=== PATIENT | male | born 1955 | race Caucasian/White ===

== ENCOUNTER 2025-01-23 15:20 | Inpatient (IN) | payer OTHER, MEDICARE, SELFPAY ==
[2025-01-23] VITALS (19 sets, daily range): BP systolic 126–143; BP diastolic 54–70; PULSE 65–74; RESP 16–22; TEMP 36.4–36.9; O2SAT 94–100
--- NOTE | ~2025-01-23 | XR_ITS ---
XR chest 2V Ordering provider: Donna Julien PA-C History: 69 years Male with . dizziness . Comparison: None. FINDINGS: MEDIASTINUM: The cardiac silhouette is not enlarged. LUNGS: No infiltrates, effusions or pneumothorax. OTHER: No free air under the diaphragm. Old healed fractures in the mid left hemithorax. S-shaped scoliosis. IMPRESSION: No acute cardiopulmonary pathology. Reviewed, dictated and finalized at location A.
--- NOTE | 2025-01-23 15:45 | ECG_ITS ---
Test Date: 2025-01-23 17:41:08 Measurements Intervals [place] Rate: 67 P: 27 PA: 219 QRS: -7 QRSD: 93 T: 172 QT: 428 QTc: 454 Interpretive Statements SINUS RHYTHM WITH FIRST DEGREE AV BLOCK LEFT VENTRICULAR HYPERTROPHY AND ST-T CHANGE Electronically Signed On 01-24-2025 08:10:28 CDT by Davion Spann D.O
--- NOTE | 2025-01-23 15:46 | ED_ITS ---
HPI - General Adult General Chief complaint: Unspecified <Gaby Munoz PA-C - Last Filed: 01/23/25 15:47> Stated complaint: over heated <Gaby Munoz PA-C - Last Filed: 01/23/25 15:47> Time Seen by Provider: 01/23/25 17:24 <Gaby Munoz PA-C - Last Filed: 01/23/25 15:47> Focused HPI: 69-year-old male presents to the emergency department with concerns for heat exhaustion. Patient states he was playing golf outside for about 4 hours in the heat today. Vital hour prior to finishing and patient became dizzy and lightheaded. He later developed nausea and vomiting which prompted him to come to the emergency department. Patient is transferred via EMS to the ED. He received some fluids EN route and states he feels better after the fluids. He denies any chest pain, shortness of breath, abdominal pain, fever. GENERAL: Well-appearing, well-nourished, and in no acute distress. HEAD: Normocephalic, atraumatic. CHEST: Clear to auscultation. ?No respiratory distress. HEART: Regular rate and rhythm.? NEURO: ?Alert and oriented x3. Patient screened in triage and initial orders placed.? ?Additional care and disposition to be based upon?diagnostic testing and treatment. <Gaby Munoz PA-C - Last Filed: 01/23/25 15:47> Focused HPI: 69-year-old male presents to the emergency department with concerns for heat exhaustion. Patient states he was playing golf outside for about 4 hours in the heat today. One hour prior to arrival patient became dizzy and lightheaded. He later developed nausea and vomiting which prompted him to come to the emergency department. Patient is transferred via EMS to the ED. He received some fluids EN route and states he feels better after the fluids. He denies any chest pain, shortness of breath, abdominal pain, fever. Patient reports history of chronic kidney disease. Reports his most recent creatinine was 1.7 GENERAL: Well-appearing, well-nourished, and in no acute distress. HEAD: Normocephalic, atraumatic. CHEST: Clear to auscultation. ?No respiratory distress. HEART: Regular rate and rhythm.? NEURO: ?Alert and oriented x3. Patient screened in triage and initial orders placed.? ?Additional care and disposition to be based upon?diagnostic testing and treatment. <Donna Julien PA-C - Last Filed: 01/24/25 01:29> Related Data Home medications: Home Medications ?Medication ?Instructions ?Recorded ?Confirmed ?Last Taken ?Type losartan 50 mg tablet 75 mg PO DAILY 01/24/25 01/24/25 01/23/25 History rosuvastatin 20 mg tablet 20 mg PO DAILY 01/24/25 01/24/25 01/23/25 History <Gaby Munoz PA-C - Last Filed: 01/23/25 15:47> Allergies/adverse reactions: Allergies Allergy/AdvReac Type Severity Reaction Status Date / Time ibuprofen AdvReac Intermediate Other Verified 01/23/25 17:34 <Gaby Munoz PA-C - Last Filed: 01/23/25 15:47> Review of Systems 2 Review of Systems: All systems reviewed & are unremarkable except as noted in HPI and below <Donna Julien PA-C - Last Filed: 01/24/25 01:29> [facility] Past Medical History Medical History: Medical History (Updated 01/24/25 @ 05:46 by Miroslava Orona PA-C) Kidney stones Benign prostatic hyperplasia Chronic kidney disease Hyperlipidemia Hypertension <Gaby Munoz PA-C - Last Filed: 01/23/25 15:47> Surgical History Surgical History: Surgical History (Updated 01/24/25 @ 05:43 by Miroslava Orona PA-C) History of cardiac catheterization <Gaby Munoz PA-C - Last Filed: 01/23/25 15:47> Social History Social History: Social History (Updated 01/24/25 @ 05:43 by Miroslava Orona PA-C) Social History: Surrogate medical decision maker: Sari Valera, spouse. Code status: Full code. Smoking status: Never smoker Second hand tobacco smoke exposure: No Alcohol intake: unknown Substance use: never Do You Feel Safe in your Home?: Yes Lack of Transportation: No Lack of Food: Never True Current Housing: I Have Housing Concerned About Future Housing: No Difficulty Paying Gas/Electric Bills: No Difficulty Paying for Meds: No Currently Unemployed: No Education: Master's Degree or Higher Difficulty w/ Childcare or Family Care: No Spiritual care concerns: No <Gaby Munoz PA-C - Last Filed: 01/23/25 15:47> Exam 2 Narrative: GENERAL: Well-appearing, well-nourished, and in no acute distress. HEAD: Normocephalic, atraumatic. EYES: EOMI. ENT: Nares clear, no rhinorrhea or epistaxis. Mucous membranes moist. Oropharynx without tonsillar hypertrophy exudate or other lesions. CHEST: Clear to auscultation. No respiratory distress. No wheezes rales or rhonchi HEART: Regular rate and rhythm. No murmur heard. Normal peripheral pulses. EXTREMITIES: Normal range of motion. No edema. SKIN: Warm, dry, no rash. NEURO: No focal deficits. Alert and oriented x3. PSYCH: Normal mood and affect <Donna Julien PA-C - Last Filed: 01/24/25 01:29> Course Course Emergency Course: Patient updated on his workup and need for admission <FILI Chaves - Last Filed: 01/24/25 01:29> DRY ICE MACHINE OPERATOR/PA Physician Supervision For this patient encounter, I reviewed the DRY ICE MACHINE OPERATOR or PA documentation, treatment plan, and medical decision making and had [id number] time with this patient. I performed all aspects of the MDM as documented. <Gala Thurston MD - Last Filed: 01/24/25 06:58> Consultations Consultation #1: Spoke with hospitalist about patient and workup who accepts admission. < Donna Julien PA-C - Last Filed: 01/24/25 01:29> Date: 01/23/25 <SUE Chaves Last Filed: 01/24/25 01:29> Vital Signs Vital signs: Vital Signs Temperature 97.6 F 01/23/25 15:30 Pulse Rate 72 01/23/25 15:30 Respiratory Rate 16 01/23/25 15:30 Blood Pressure 126/64 01/23/25 15:30 Pulse Oximetry 100 01/23/25 15:30 Oxygen Delivery Room Air 01/23/25 15:30 Temperature 98.4 F 01/24/25 04:00 Pulse Rate 62 01/24/25 06:00 Respiratory Rate 15 01/24/25 04:00 Blood Pressure 133/61 01/24/25 04:00 Pulse Oximetry 100 01/24/25 04:00 Oxygen Delivery Room Air 01/24/25 03:36 <Gaby Munoz PA-C - Last Filed: 01/23/25 15:47> Vital Signs Temperature 97.6 F 01/23/25 15:30 Pulse Rate 72 01/23/25 15:30 Respiratory Rate 16 01/23/25 15:30 Blood Pressure 126/64 01/23/25 15:30 Pulse Oximetry 100 01/23/25 15:30 Oxygen Delivery Room Air 01/23/25 15:30 Temperature 98.4 F 01/24/25 04:00 Pulse Rate 62 01/24/25 06:00 Respiratory Rate 15 01/24/25 04:00 Blood Pressure 133/61 01/24/25 04:00 Pulse Oximetry 100 01/24/25 04:00 Oxygen Delivery Room Air 01/24/25 03:36 <Donna Julien PA-C - Last Filed: 01/24/25 01:29> Vital Signs Temperature 97.6 F 01/23/25 15:30 Pulse Rate 72 01/23/25 15:30 Respiratory Rate 16 01/23/25 15:30 Blood Pressure 126/64 01/23/25 15:30 Pulse Oximetry 100 01/23/25 15:30 Oxygen Delivery Room Air 01/23/25 15:30 Temperature 98.4 F 01/24/25 04:00 Pulse Rate 62 01/24/25 06:00 Respiratory Rate 15 01/24/25 04:00 Blood Pressure 133/61 01/24/25 04:00 Pulse Oximetry 100 01/24/25 04:00 Oxygen Delivery Room Air 01/24/25 03:36 <Gala Thurston MD - Last Filed: 01/24/25 06:58> Medical Decision Making MDM Narrative Medical decision making narrative: Patient presents to the emergency department for an episode of nausea, vomiting, dizziness. He is afebrile and nontoxic appearing. His vitals are stable. CBC with leukocytosis 12.4. Metabolic panel with evidence of acute kidney injury with creatinine of 3.18. Patient reports his most recent creatinine was 1.7. Urine also showing evidence of dehydration. Patient's baseline EKG shows T-wave inversions anterolaterally. He does not endorse any chest discomfort. Baseline troponin was elevated at 0.469. Patient was updated on his workup and need for admission. He reports relief in his symptoms with hydration. Spoke with hospitalist about patient and workup who accepts admission. Patient given a dose of Lovenox in the ED. Will consult cardiology < Donna Julien PA-C - Last Filed: 01/24/25 01:29> Differential Diagnosis Differential Diagnosis: dehydration, electrolyte derangement, acute kidney injury, NSTEMI, arrhythmia <Donna Julien PA-C - Last Filed: 01/24/25 01:29> Vital Signs Vital Signs: Vital Signs Temperature 97.6 F 01/23/25 15:30 Pulse Rate 72 01/23/25 15:30 Respiratory Rate 16 01/23/25 15:30 Blood Pressure 126/64 01/23/25 15:30 Pulse Oximetry 100 01/23/25 15:30 Oxygen Delivery Room Air 01/23/25 15:30 Temperature 98.4 F 01/24/25 04:00 Pulse Rate 62 01/24/25 06:00 Respiratory Rate 15 01/24/25 04:00 Blood Pressure 133/61 01/24/25 04:00 Pulse Oximetry 100 01/24/25 04:00 Oxygen Delivery Room Air 01/24/25 03:36 <Gaby Munoz PA-C - Last Filed: 01/23/25 15:47> Vital Signs Temperature 97.6 F 01/23/25 15:30 Pulse Rate 72 01/23/25 15:30 Respiratory Rate 16 01/23/25 15:30 Blood Pressure 126/64 01/23/25 15:30 Pulse Oximetry 100 01/23/25 15:30 Oxygen Delivery Room Air 01/23/25 15:30 Temperature 98.4 F 01/24/25 04:00 Pulse Rate 62 01/24/25 06:00 Respiratory Rate 15 01/24/25 04:00 Blood Pressure 133/61 01/24/25 04:00 Pulse Oximetry 100 01/24/25 04:00 Oxygen Delivery Room Air 01/24/25 03:36 <Donna Julien PA-C - Last Filed: 01/24/25 01:29> Vital Signs Temperature 97.6 F 01/23/25 15:30 Pulse Rate 72 01/23/25 15:30 Respiratory Rate 16 01/23/25 15:30 Blood Pressure 126/64 01/23/25 15:30 Pulse Oximetry 100 01/23/25 15:30 Oxygen Delivery Room Air 01/23/25 15:30 Temperature 98.4 F 01/24/25 04:00 Pulse Rate 62 01/24/25 06:00 Respiratory Rate 15 01/24/25 04:00 Blood Pressure 133/61 01/24/25 04:00 Pulse Oximetry 100 01/24/25 04:00 Oxygen Delivery Room Air 01/24/25 03:36 <Gala Thurston MD - Last Filed: 01/24/25 06:58> Lab Data Lab results reviewed: Yes I reviewed the patient's lab results. <Donna Julien PA-C - Last Filed: 01/24/25 01:29> Result diagrams: 01/24/25 05:46 01/24/25 05:46 <Gaby Munoz PA-C - Last Filed: 01/23/25 15:47> Labs: Lab Results 01/23/25 01/23/25 01/23/25 Range/Units 16:33 16:33 16:33 WBC 12.4 H (4.5-10.0) K/mm3 RBC 4.57 L (4.6-6.20) M/mm3 Hgb 13.1 L (14.0-18.0) g/dL Hct 39.8 L (42.0-52.0) % MCV 87.1 (80-100) fl MCH 28.7 (26-34) pg MCHC 32.9 (32-36) g/dl RDW 13.2 (11.5-14.5) % Plt Count 200 (150-375) k/mm3 MPV 10.7 H (7.4-10.4) fl Immature Gran % (Auto) 0.4 (0-0.5) % Neut % (Auto) 83.6 H (45.5-73.1) % Lymph % (Auto) 8.1 L (18.3-44.2) % [place] % (Auto) 7.7 (2.6-8.5) % Eos % (Auto) 0.0 (0-4.4) % Baso % (Auto) 0.2 (0.2-1.2) % Lymph # (Auto) 1.00 (0.9-3.2) K/mm3 [place] # (Auto) 1.0 H (0.1-0.6) K/mm3 Eos # (Auto) 0.0 (0-0.3) K/mm3 Baso # (Auto) 0.0 (0.0-0.1) K/mm3 Abs Immat Gran (auto) 0.05 H (0.00-0.031) K/mm3 Absolute Neuts (auto) 10.4 H (1.3-6.7) K/mm3 Absolute Nucleated RBC 0.000 (0.0-0.012) K/mm3 Nucleated RBC % 0.0 (0.0-0.2) % Sodium 141 141 (137-145) mmol/L Potassium 4.1 4.2 (3.4-5.0) mmol/L Chloride 107 (98-107) mmol/L Carbon Dioxide (22-30) mmol/L Anion Gap (4-12) mmol/L BUN (9-20) mg/dL Creatinine (0.7-1.3) mg/dL Estim Creat Clear Calc ml/min Estimated GFR (59 - ) Glucose (65-110) mg/dL Calcium (8.4-10.2) mg/dL Magnesium (1.6-2.3) mg/dL Total Bilirubin (0.2-1.3) mg/dL AST (17-59) U/L ALT (6-50) U/L Alkaline Phosphatase (38-126) U/L Total Creatine Kinase (55-170) U/L Troponin I (0.000-0.034) ng/mL Total Protein (6.3-8.2) g/dL Albumin (3.5-5.1) g/dL Urine Color (Yellow) Urine Appearance (Clear) Urine pH (5.0-9.0) Ur Specific [place] (1.001-1.035) Urine Protein (Negative) mg/dL Urine Glucose (UA) (Negative) mg/dL Urine Ketones (Negative) mg/dL Ur Blood (Man) (Negative) Urine Nitrate (Negative) Urine Bilirubin (Negative) Urine Urobilinogen (<2.0) mg/dL Leukocyte Esterase Rfl (Negative) DALRENE/UL Urine RBC (0-2) /hpf Urine WBC (0-3) /hpf Ur Squamous Epith Cells (Few) /hpf Urine Bacteria /hpf Urine Casts Hyaline Casts (None) /lpf 01/23/25 01/23/25 01/23/25 Range/Units 16:33 16:33 16:33 WBC (4.5-10.0) K/mm3 RBC (4.6-6.20) M/mm3 Hgb (14.0-18.0) g/dL Hct (42.0-52.0) % MCV (80-100) fl MCH (26-34) pg MCHC (32-36) g/dl RDW (11.5-14.5) % Plt Count (150-375) k/mm3 MPV (7.4-10.4) fl Immature Gran % (Auto) (0-0.5) % Neut % (Auto) (45.5-73.1) % Lymph % (Auto) (18.3-44.2) % [place] % (Auto) (2.6-8.5) % Eos % (Auto) (0-4.4) % Baso % (Auto) (0.2-1.2) % Lymph # (Auto) (0.9-3.2) K/mm3 [place] # (Auto) (0.1-0.6) K/mm3 Eos # (Auto) (0-0.3) K/mm3 Baso # (Auto) (0.0-0.1) K/mm3 Abs Immat Gran (auto) (0.00-0.031) K/mm3 Absolute Neuts (auto) (1.3-6.7) K/mm3 Absolute Nucleated RBC (0.0-0.012) K/mm3 Nucleated RBC % (0.0-0.2) % Sodium (137-145) mmol/L Potassium (3.4-5.0) mmol/L Chloride 105 (98-107) mmol/L Carbon Dioxide 22 23 (22-30) mmol/L Anion Gap 12 13 H (4-12) mmol/L BUN 28 H (9-20) mg/dL Creatinine (0.7-1.3) mg/dL Estim Creat Clear Calc ml/min Estimated GFR (59 - ) Glucose (65-110) mg/dL Calcium (8.4-10.2) mg/dL Magnesium (1.6-2.3) mg/dL Total Bilirubin (0.2-1.3) mg/dL AST (17-59) U/L ALT (6-50) U/L Alkaline Phosphatase (38-126) U/L Total Creatine Kinase (55-170) U/L Troponin I (0.000-0.034) ng/mL Total Protein (6.3-8.2) g/dL Albumin (3.5-5.1) g/dL Urine Color (Yellow) Urine Appearance (Clear) Urine pH (5.0-9.0) Ur Specific [place] (1.001-1.035) Urine Protein (Negative) mg/dL Urine Glucose (UA) (Negative) mg/dL Urine Ketones (Negative) mg/dL Ur Blood (Man) (Negative) Urine Nitrate (Negative) Urine Bilirubin (Negative) Urine Urobilinogen (<2.0) mg/dL Leukocyte Esterase Rfl (Negative) DARLENE/UL Urine RBC (0-2) /hpf Urine WBC (0-3) /hpf Ur Squamous Epith Cells (Few) /hpf Urine Bacteria /hpf Urine Casts Hyaline Casts (None) /lpf 01/23/25 01/23/25 01/23/25 Range/Units 16:33 16:33 16:33 WBC (4.5-10.0) K/mm3 RBC (4.6-6.20) M/mm3 Hgb (14.0-18.0) g/dL Hct (42.0-52.0) % MCV (80-100) fl MCH (26-34) pg MCHC (32-36) g/dl RDW (11.5-14.5) % Plt Count (150-375) k/mm3 MPV (7.4-10.4) fl Immature Gran % (Auto) (0-0.5) % Neut % (Auto) (45.5-73.1) % Lymph % (Auto) (18.3-44.2) % [place] % (Auto) (2.6-8.5) % Eos % (Auto) (0-4.4) % Baso % (Auto) (0.2-1.2) % Lymph # (Auto) (0.9-3.2) K/mm3 [place] # (Auto) (0.1-0.6) K/mm3 Eos # (Auto) (0-0.3) K/mm3 Baso # (Auto) (0.0-0.1) K/mm3 Abs Immat Gran (auto) (0.00-0.031) K/mm3 Absolute Neuts (auto) (1.3-6.7) K/mm3 Absolute Nucleated RBC (0.0-0.012) K/mm3 Nucleated RBC % (0.0-0.2) % Sodium (137-145) mmol/L Potassium (3.4-5.0) mmol/L Chloride (98-107) mmol/L Carbon Dioxide (22-30) mmol/L Anion Gap (4-12) mmol/L BUN 29 H (9-20) mg/dL Creatinine 3.18 H 3.14 H (0.7-1.3) mg/dL Estim Creat Clear Calc 25 25 ml/min Estimated GFR 20 L (59 - ) Glucose (65-110) mg/dL Calcium (8.4-10.2) mg/dL Magnesium (1.6-2.3) mg/dL Total Bilirubin (0.2-1.3) mg/dL AST (17-59) U/L ALT (6-50) U/L Alkaline Phosphatase (38-126) U/L Total Creatine Kinase (55-170) U/L Troponin I (0.000-0.034) ng/mL Total Protein (6.3-8.2) g/dL Albumin (3.5-5.1) g/dL Urine Color (Yellow) Urine Appearance (Clear) Urine pH (5.0-9.0) Ur Specific [place] (1.001-1.035) Urine Protein (Negative) mg/dL Urine Glucose (UA) (Negative) mg/dL Urine Ketones (Negative) mg/dL Ur Blood (Man) (Negative) Urine Nitrate (Negative) Urine Bilirubin (Negative) Urine Urobilinogen (<2.0) mg/dL Leukocyte Esterase Rfl (Negative) DARLENE/UL Urine RBC (0-2) /hpf Urine WBC (0-3) /hpf Ur Squamous Epith Cells (Few) /hpf Urine Bacteria /hpf Urine Casts Hyaline Casts (None) /lpf 01/23/25 01/23/25 01/23/25 Range/Units 16:33 16:33 16:33 WBC (4.5-10.0) K/mm3 RBC (4.6-6.20) M/mm3 Hgb (14.0-18.0) g/dL Hct (42.0-52.0) % MCV (80-100) fl MCH (26-34) pg MCHC (32-36) g/dl RDW (11.5-14.5) % Plt Count (150-375) k/mm3 MPV (7.4-10.4) fl Immature Gran % (Auto) (0-0.5) % Neut % (Auto) (45.5-73.1) % Lymph % (Auto) (18.3-44.2) % [place] % (Auto) (2.6-8.5) % Eos % (Auto) (0-4.4) % Baso % (Auto) (0.2-1.2) % Lymph # (Auto) (0.9-3.2) K/mm3 [place] # (Auto) (0.1-0.6) K/mm3 Eos # (Auto) (0-0.3) K/mm3 Baso # (Auto) (0.0-0.1) K/mm3 Abs Immat Gran (auto) (0.00-0.031) K/mm3 Absolute Neuts (auto) (1.3-6.7) K/mm3 Absolute Nucleated RBC (0.0-0.012) K/mm3 Nucleated RBC % (0.0-0.2) % Sodium (137-145) mmol/L Potassium (3.4-5.0) mmol/L Chloride (98-107) mmol/L Carbon Dioxide (22-30) mmol/L Anion Gap (4-12) mmol/L BUN (9-20) mg/dL Creatinine (0.7-1.3) mg/dL Estim Creat Clear Calc ml/min Estimated GFR 20 L (59 - ) Glucose 105 103 (65-110) mg/dL Calcium 9.7 10.0 (8.4-10.2) mg/dL Magnesium 2.0 (1.6-2.3) mg/dL Total Bilirubin 1.1 (0.2-1.3) mg/dL AST 36 (17-59) U/L ALT 28 (6-50) U/L Alkaline Phosphatase 59 (38-126) U/L Total Creatine Kinase 307 H (55-170) U/L Troponin I 0.469 H* (0.000-0.034) ng/mL Total Protein 8.1 (6.3-8.2) g/dL Albumin 4.6 (3.5-5.1) g/dL Urine Color (Yellow) Urine Appearance (Clear) Urine pH (5.0-9.0) Ur Specific [place] (1.001-1.035) Urine Protein (Negative) mg/dL Urine Glucose (UA) (Negative) mg/dL Urine Ketones (Negative) mg/dL Ur Blood (Man) (Negative) Urine Nitrate (Negative) Urine Bilirubin (Negative) Urine Urobilinogen (<2.0) mg/dL Leukocyte Esterase Rfl (Negative) DARLENE/UL Urine RBC (0-2) /hpf Urine WBC (0-3) /hpf Ur Squamous Epith Cells (Few) /hpf Urine Bacteria /hpf Urine Casts Hyaline Casts (None) /lpf 01/23/25 Range/Units 19:45 WBC (4.5-10.0) K/mm3 RBC (4.6-6.20) M/mm3 Hgb (14.0-18.0) g/dL Hct (42.0-52.0) % MCV (80-100) fl MCH (26-34) pg MCHC (32-36) g/dl RDW (11.5-14.5) % Plt Count (150-375) k/mm3 MPV (7.4-10.4) fl Immature Gran % (Auto) (0-0.5) % Neut % (Auto) (45.5-73.1) % Lymph % (Auto) (18.3-44.2) % [place] % (Auto) (2.6-8.5) % Eos % (Auto) (0-4.4) % Baso % (Auto) (0.2-1.2) % Lymph # (Auto) (0.9-3.2) K/mm3 [place] # (Auto) (0.1-0.6) K/mm3 Eos # (Auto) (0-0.3) K/mm3 Baso # (Auto) (0.0-0.1) K/mm3 Abs Immat Gran (auto) (0.00-0.031) K/mm3 Absolute Neuts (auto) (1.3-6.7) K/mm3 Absolute Nucleated RBC (0.0-0.012) K/mm3 Nucleated RBC % (0.0-0.2) % Sodium (137-145) mmol/L Potassium (3.4-5.0) mmol/L Chloride (98-107) mmol/L Carbon Dioxide (22-30) mmol/L Anion Gap (4-12) mmol/L BUN (9-20) mg/dL Creatinine (0.7-1.3) mg/dL Estim Creat Clear Calc ml/min Estimated GFR (59 - ) Glucose (65-110) mg/dL Calcium (8.4-10.2) mg/dL Magnesium (1.6-2.3) mg/dL Total Bilirubin (0.2-1.3) mg/dL AST (17-59) U/L ALT (6-50) U/L Alkaline Phosphatase (38-126) U/L Total Creatine Kinase (55-170) U/L Troponin I (0.000-0.034) ng/mL Total Protein (6.3-8.2) g/dL Albumin (3.5-5.1) g/dL Urine Color Yellow (Yellow) Urine Appearance Clear (Clear) Urine pH 5.5 (5.0-9.0) Ur Specific [place] 1.018 (1.001-1.035) Urine Protein 2+ H (Negative) mg/dL Urine Glucose (UA) Negative (Negative) mg/dL Urine Ketones Trace H (Negative) mg/dL Ur Blood (Man) Trace (Negative) Urine Nitrate Negative (Negative) Urine Bilirubin Negative (Negative) Urine Urobilinogen 0.2 (<2.0) mg/dL Leukocyte Esterase Rfl Negative (Negative) DARLENE/UL Urine RBC 0-2 (0-2) /hpf Urine WBC 6-10 H (0-3) /hpf Ur Squamous Epith Cells Moderate (Few) /hpf Urine Bacteria None seen /hpf Urine Casts >20 Hyaline Casts Present (None) /lpf <Gaby Munoz PA-C - Last Filed: 01/23/25 15:47> Lab Results 01/23/25 01/23/25 01/23/25 Range/Units 16:33 16:33 16:33 WBC 12.4 H (4.5-10.0) K/mm3 RBC 4.57 L (4.6-6.20) M/mm3 Hgb 13.1 L (14.0-18.0) g/dL Hct 39.8 L (42.0-52.0) % MCV 87.1 (80-100) fl MCH 28.7 (26-34) pg MCHC 32.9 (32-36) g/dl RDW 13.2 (11.5-14.5) % Plt Count 200 (150-375) k/mm3 MPV 10.7 H (7.4-10.4) fl Immature Gran % (Auto) 0.4 (0-0.5) % Neut % (Auto) 83.6 H (45.5-73.1) % Lymph % (Auto) 8.1 L (18.3-44.2) % [place] % (Auto) 7.7 (2.6-8.5) % Eos % (Auto) 0.0 (0-4.4) % Baso % (Auto) 0.2 (0.2-1.2) % Lymph # (Auto) 1.00 (0.9-3.2) K/mm3 [place] # (Auto) 1.0 H (0.1-0.6) K/mm3 Eos # (Auto) 0.0 (0-0.3) K/mm3 Baso # (Auto) 0.0 (0.0-0.1) K/mm3 Abs Immat Gran (auto) 0.05 H (0.00-0.031) K/mm3 Absolute Neuts (auto) 10.4 H (1.3-6.7) K/mm3 Absolute Nucleated RBC 0.000 (0.0-0.012) K/mm3 Nucleated RBC % 0.0 (0.0-0.2) % Sodium 141 141 (137-145) mmol/L Potassium 4.1 4.2 (3.4-5.0) mmol/L Chloride 107 (98-107) mmol/L Carbon Dioxide (22-30) mmol/L Anion Gap (4-12) mmol/L BUN (9-20) mg/dL Creatinine (0.7-1.3) mg/dL Estim Creat Clear Calc ml/min Estimated GFR (59 - ) Glucose (65-110) mg/dL Calcium (8.4-10.2) mg/dL Magnesium (1.6-2.3) mg/dL Total Bilirubin (0.2-1.3) mg/dL AST (17-59) U/L ALT (6-50) U/L Alkaline Phosphatase (38-126) U/L Total Creatine Kinase (55-170) U/L Troponin I (0.000-0.034) ng/mL Total Protein (6.3-8.2) g/dL Albumin (3.5-5.1) g/dL Urine Color (Yellow) Urine Appearance (Clear) Urine pH (5.0-9.0) Ur Specific [place] (1.001-1.035) Urine Protein (Negative) mg/dL Urine Glucose (UA) (Negative) mg/dL Urine Ketones (Negative) mg/dL Ur Blood (Man) (Negative) Urine Nitrate (Negative) Urine Bilirubin (Negative) Urine Urobilinogen (<2.0) mg/dL Leukocyte Esterase Rfl (Negative) DARLENE/UL Urine RBC (0-2) /hpf Urine WBC (0-3) /hpf Ur Squamous Epith Cells (Few) /hpf Urine Bacteria /hpf Urine Casts Hyaline Casts (None) /lpf 01/23/25 01/23/25 01/23/25 Range/Units 16:33 16:33 16:33 WBC (4.5-10.0) K/mm3 RBC (4.6-6.20) M/mm3 Hgb (14.0-18.0) g/dL Hct (42.0-52.0) % MCV (80-100) fl MCH (26-34) pg MCHC (32-36) g/dl RDW (11.5-14.5) % Plt Count (150-375) k/mm3 MPV (7.4-10.4) fl Immature Gran % (Auto) (0-0.5) % Neut % (Auto) (45.5-73.1) % Lymph % (Auto) (18.3-44.2) % [place] % (Auto) (2.6-8.5) % Eos % (Auto) (0-4.4) % Baso % (Auto) (0.2-1.2) % Lymph # (Auto) (0.9-3.2) K/mm3 [place] # (Auto) (0.1-0.6) K/mm3 Eos # (Auto) (0-0.3) K/mm3 Baso # (Auto) (0.0-0.1) K/mm3 Abs Immat Gran (auto) (0.00-0.031) K/mm3 Absolute Neuts (auto) (1.3-6.7) K/mm3 Absolute Nucleated RBC (0.0-0.012) K/mm3 Nucleated RBC % (0.0-0.2) % Sodium (137-145) mmol/L Potassium (3.4-5.0) mmol/L Chloride 105 (98-107) mmol/L Carbon Dioxide 22 23 (22-30) mmol/L Anion Gap 12 13 H (4-12) mmol/L BUN 28 H (9-20) mg/dL Creatinine (0.7-1.3) mg/dL Estim Creat Clear Calc ml/min Estimated GFR (59 - ) Glucose (65-110) mg/dL Calcium (8.4-10.2) mg/dL Magnesium (1.6-2.3) mg/dL Total Bilirubin (0.2-1.3) mg/dL AST (17-59) U/L ALT (6-50) U/L Alkaline Phosphatase (38-126) U/L Total Creatine Kinase (55-170) U/L Troponin I (0.000-0.034) ng/mL Total Protein (6.3-8.2) g/dL Albumin (3.5-5.1) g/dL Urine Color (Yellow) Urine Appearance (Clear) Urine pH (5.0-9.0) Ur Specific [place] (1.001-1.035) Urine Protein (Negative) mg/dL Urine Glucose (UA) (Negative) mg/dL Urine Ketones (Negative) mg/dL Ur Blood (Man) (Negative) Urine Nitrate (Negative) Urine Bilirubin (Negative) Urine Urobilinogen (<2.0) mg/dL Leukocyte Esterase Rfl (Negative) DARLENE/UL Urine RBC (0-2) /hpf Urine WBC (0-3) /hpf Ur Squamous Epith Cells (Few) /hpf Urine Bacteria /hpf Urine Casts Hyaline Casts (None) /lpf 01/23/25 01/23/25 01/23/25 Range/Units 16:33 16:33 16:33 WBC (4.5-10.0) K/mm3 RBC (4.6-6.20) M/mm3 Hgb (14.0-18.0) g/dL Hct (42.0-52.0) % MCV (80-100) fl MCH (26-34) pg MCHC (32-36) g/dl RDW (11.5-14.5) % Plt Count (150-375) k/mm3 MPV (7.4-10.4) fl Immature Gran % (Auto) (0-0.5) % Neut % (Auto) (45.5-73.1) % Lymph % (Auto) (18.3-44.2) % [place] % (Auto) (2.6-8.5) % Eos % (Auto) (0-4.4) % Baso % (Auto) (0.2-1.2) % Lymph # (Auto) (0.9-3.2) K/mm3 [place] # (Auto) (0.1-0.6) K/mm3 Eos # (Auto) (0-0.3) K/mm3 Baso # (Auto) (0.0-0.1) K/mm3 Abs Immat Gran (auto) (0.00-0.031) K/mm3 Absolute Neuts (auto) (1.3-6.7) K/mm3 Absolute Nucleated RBC (0.0-0.012) K/mm3 Nucleated RBC % (0.0-0.2) % Sodium (137-145) mmol/L Potassium (3.4-5.0) mmol/L Chloride (98-107) mmol/L Carbon Dioxide (22-30) mmol/L Anion Gap (4-12) mmol/L BUN 29 H (9-20) mg/dL Creatinine 3.18 H 3.14 H (0.7-1.3) mg/dL Estim Creat Clear Calc 25 25 ml/min Estimated GFR 20 L (59 - ) Glucose (65-110) mg/dL Calcium (8.4-10.2) mg/dL Magnesium (1.6-2.3) mg/dL Total Bilirubin (0.2-1.3) mg/dL AST (17-59) U/L ALT (6-50) U/L Alkaline Phosphatase (38-126) U/L Total Creatine Kinase (55-170) U/L Troponin I (0.000-0.034) ng/mL Total Protein (6.3-8.2) g/dL Albumin (3.5-5.1) g/dL Urine Color (Yellow) Urine Appearance (Clear) Urine pH (5.0-9.0) Ur Specific [place] (1.001-1.035) Urine Protein (Negative) mg/dL Urine Glucose (UA) (Negative) mg/dL Urine Ketones (Negative) mg/dL Ur Blood (Man) (Negative) Urine Nitrate (Negative) Urine Bilirubin (Negative) Urine Urobilinogen (<2.0) mg/dL Leukocyte Esterase Rfl (Negative) DARLENE/UL Urine RBC (0-2) /hpf Urine WBC (0-3) /hpf Ur Squamous Epith Cells (Few) /hpf Urine Bacteria /hpf Urine Casts Hyaline Casts (None) /lpf 01/23/25 01/23/25 01/23/25 Range/Units 16:33 16:33 16:33 WBC (4.5-10.0) K/mm3 RBC (4.6-6.20) M/mm3 Hgb (14.0-18.0) g/dL Hct (42.0-52.0) % MCV (80-100) fl MCH (26-34) pg MCHC (32-36) g/dl RDW (11.5-14.5) % Plt Count (150-375) k/mm3 MPV (7.4-10.4) fl Immature Gran % (Auto) (0-0.5) % Neut % (Auto) (45.5-73.1) % Lymph % (Auto) (18.3-44.2) % [place] % (Auto) (2.6-8.5) % Eos % (Auto) (0-4.4) % Baso % (Auto) (0.2-1.2) % Lymph # (Auto) (0.9-3.2) K/mm3 [place] # (Auto) (0.1-0.6) K/mm3 Eos # (Auto) (0-0.3) K/mm3 Baso # (Auto) (0.0-0.1) K/mm3 Abs Immat Gran (auto) (0.00-0.031) K/mm3 Absolute Neuts (auto) (1.3-6.7) K/mm3 Absolute Nucleated RBC (0.0-0.012) K/mm3 Nucleated RBC % (0.0-0.2) % Sodium (137-145) mmol/L Potassium (3.4-5.0) mmol/L Chloride (98-107) mmol/L Carbon Dioxide (22-30) mmol/L Anion Gap (4-12) mmol/L BUN (9-20) mg/dL Creatinine (0.7-1.3) mg/dL Estim Creat Clear Calc ml/min Estimated GFR 20 L (59 - ) Glucose 105 103 (65-110) mg/dL Calcium 9.7 10.0 (8.4-10.2) mg/dL Magnesium 2.0 (1.6-2.3) mg/dL Total Bilirubin 1.1 (0.2-1.3) mg/dL AST 36 (17-59) U/L ALT 28 (6-50) U/L Alkaline Phosphatase 59 (38-126) U/L Total Creatine Kinase 307 H (55-170) U/L Troponin I 0.469 H* (0.000-0.034) ng/mL Total Protein 8.1 (6.3-8.2) g/dL Albumin 4.6 (3.5-5.1) g/dL Urine Color (Yellow) Urine Appearance (Clear) Urine pH (5.0-9.0) Ur Specific [place] (1.001-1.035) Urine Protein (Negative) mg/dL Urine Glucose (UA) (Negative) mg/dL Urine Ketones (Negative) mg/dL Ur Blood (Man) (Negative) Urine Nitrate (Negative) Urine Bilirubin (Negative) Urine Urobilinogen (<2.0) mg/dL Leukocyte Esterase Rfl (Negative) DARLENE/UL Urine RBC (0-2) /hpf Urine WBC (0-3) /hpf Ur Squamous Epith Cells (Few) /hpf Urine Bacteria /hpf Urine Casts Hyaline Casts (None) /lpf 01/23/25 Range/Units 19:45 WBC (4.5-10.0) K/mm3 RBC (4.6-6.20) M/mm3 Hgb (14.0-18.0) g/dL Hct (42.0-52.0) % MCV (80-100) fl MCH (26-34) pg MCHC (32-36) g/dl RDW (11.5-14.5) % Plt Count (150-375) k/mm3 MPV (7.4-10.4) fl Immature Gran % (Auto) (0-0.5) % Neut % (Auto) (45.5-73.1) % Lymph % (Auto) (18.3-44.2) % [place] % (Auto) (2.6-8.5) % Eos % (Auto) (0-4.4) % Baso % (Auto) (0.2-1.2) % Lymph # (Auto) (0.9-3.2) K/mm3 [place] # (Auto) (0.1-0.6) K/mm3 Eos # (Auto) (0-0.3) K/mm3 Baso # (Auto) (0.0-0.1) K/mm3 Abs Immat Gran (auto) (0.00-0.031) K/mm3 Absolute Neuts (auto) (1.3-6.7) K/mm3 Absolute Nucleated RBC (0.0-0.012) K/mm3 Nucleated RBC % (0.0-0.2) % Sodium (137-145) mmol/L Potassium (3.4-5.0) mmol/L Chloride (98-107) mmol/L Carbon Dioxide (22-30) mmol/L Anion Gap (4-12) mmol/L BUN (9-20) mg/dL Creatinine (0.7-1.3) mg/dL Estim Creat Clear Calc ml/min Estimated GFR (59 - ) Glucose (65-110) mg/dL Calcium (8.4-10.2) mg/dL Magnesium (1.6-2.3) mg/dL Total Bilirubin (0.2-1.3) mg/dL AST (17-59) U/L ALT (6-50) U/L Alkaline Phosphatase (38-126) U/L Total Creatine Kinase (55-170) U/L Troponin I (0.000-0.034) ng/mL Total Protein (6.3-8.2) g/dL Albumin (3.5-5.1) g/dL Urine Color Yellow (Yellow) Urine Appearance Clear (Clear) Urine pH 5.5 (5.0-9.0) Ur Specific [place] 1.018 (1.001-1.035) Urine Protein 2+ H (Negative) mg/dL Urine Glucose (UA) Negative (Negative) mg/dL Urine Ketones Trace H (Negative) mg/dL Ur Blood (Man) Trace (Negative) Urine Nitrate Negative (Negative) Urine Bilirubin Negative (Negative) Urine Urobilinogen 0.2 (<2.0) mg/dL Leukocyte Esterase Rfl Negative (Negative) DARLENE/UL Urine RBC 0-2 (0-2) /hpf Urine WBC 6-10 H (0-3) /hpf Ur Squamous Epith Cells Moderate (Few) /hpf Urine Bacteria None seen /hpf Urine Casts >20 Hyaline Casts Present (None) /lpf <Donna Julien PA-C - Last Filed: 01/24/25 01:29> Lab Results 01/23/25 01/23/25 01/23/25 Range/Units 16:33 16:33 16:33 WBC 12.4 H (4.5-10.0) K/mm3 RBC 4.57 L (4.6-6.20) M/mm3 Hgb 13.1 L (14.0-18.0) g/dL Hct 39.8 L (42.0-52.0) % MCV 87.1 (80-100) fl MCH 28.7 (26-34) pg MCHC 32.9 (32-36) g/dl RDW 13.2 (11.5-14.5) % Plt Count 200 (150-375) k/mm3 MPV 10.7 H (7.4-10.4) fl Immature Gran % (Auto) 0.4 (0-0.5) % Neut % (Auto) 83.6 H (45.5-73.1) % Lymph % (Auto) 8.1 L (18.3-44.2) % [place] % (Auto) 7.7 (2.6-8.5) % Eos % (Auto) 0.0 (0-4.4) % Baso % (Auto) 0.2 (0.2-1.2) % Lymph # (Auto) 1.00 (0.9-3.2) K/mm3 [place] # (Auto) 1.0 H (0.1-0.6) K/mm3 Eos # (Auto) 0.0 (0-0.3) K/mm3 Baso # (Auto) 0.0 (0.0-0.1) K/mm3 Abs Immat Gran (auto) 0.05 H (0.00-0.031) K/mm3 Absolute Neuts (auto) 10.4 H (1.3-6.7) K/mm3 Absolute Nucleated RBC 0.000 (0.0-0.012) K/mm3 Nucleated RBC % 0.0 (0.0-0.2) % Sodium 141 141 (137-145) mmol/L Potassium 4.1 4.2 (3.4-5.0) mmol/L Chloride 107 (98-107) mmol/L Carbon Dioxide (22-30) mmol/L Anion Gap (4-12) mmol/L BUN (9-20) mg/dL Creatinine (0.7-1.3) mg/dL Estim Creat Clear Calc ml/min Estimated GFR (59 - ) Glucose (65-110) mg/dL Calcium (8.4-10.2) mg/dL Magnesium (1.6-2.3) mg/dL Total Bilirubin (0.2-1.3) mg/dL AST (17-59) U/L ALT (6-50) U/L Alkaline Phosphatase (38-126) U/L Total Creatine Kinase (55-170) U/L Troponin I (0.000-0.034) ng/mL Total Protein (6.3-8.2) g/dL Albumin (3.5-5.1) g/dL Urine Color (Yellow) Urine Appearance (Clear) Urine pH (5.0-9.0) Ur Specific [place] (1.001-1.035) Urine Protein (Negative) mg/dL Urine Glucose (UA) (Negative) mg/dL Urine Ketones (Negative) mg/dL Ur Blood (Man) (Negative) Urine Nitrate (Negative) Urine Bilirubin (Negative) Urine Urobilinogen (<2.0) mg/dL Leukocyte Esterase Rfl (Negative) DARLENE/UL Urine RBC (0-2) /hpf Urine WBC (0-3) /hpf Ur Squamous Epith Cells (Few) /hpf Urine Bacteria /hpf Urine Casts Hyaline Casts (None) /lpf 01/23/25 01/23/25 01/23/25 Range/Units 16:33 16:33 16:33 WBC (4.5-10.0) K/mm3 RBC (4.6-6.20) M/mm3 Hgb (14.0-18.0) g/dL Hct (42.0-52.0) % MCV (80-100) fl MCH (26-34) pg MCHC (32-36) g/dl RDW (11.5-14.5) % Plt Count (150-375) k/mm3 MPV (7.4-10.4) fl Immature Gran % (Auto) (0-0.5) % Neut % (Auto) (45.5-73.1) % Lymph % (Auto) (18.3-44.2) % [place] % (Auto) (2.6-8.5) % Eos % (Auto) (0-4.4) % Baso % (Auto) (0.2-1.2) % Lymph # (Auto) (0.9-3.2) K/mm3 [place] # (Auto) (0.1-0.6) K/mm3 Eos # (Auto) (0-0.3) K/mm3 Baso # (Auto) (0.0-0.1) K/mm3 Abs Immat Gran (auto) (0.00-0.031) K/mm3 Absolute Neuts (auto) (1.3-6.7) K/mm3 Absolute Nucleated RBC (0.0-0.012) K/mm3 Nucleated RBC % (0.0-0.2) % Sodium (137-145) mmol/L Potassium (3.4-5.0) mmol/L Chloride 105 (98-107) mmol/L Carbon Dioxide 22 23 (22-30) mmol/L Anion Gap 12 13 H (4-12) mmol/L BUN 28 H (9-20) mg/dL Creatinine (0.7-1.3) mg/dL Estim Creat Clear Calc ml/min Estimated GFR (59 - ) Glucose (65-110) mg/dL Calcium (8.4-10.2) mg/dL Magnesium (1.6-2.3) mg/dL Total Bilirubin (0.2-1.3) mg/dL AST (17-59) U/L ALT (6-50) U/L Alkaline Phosphatase (38-126) U/L Total Creatine Kinase (55-170) U/L Troponin I (0.000-0.034) ng/mL Total Protein (6.3-8.2) g/dL Albumin (3.5-5.1) g/dL Urine Color (Yellow) Urine Appearance (Clear) Urine pH (5.0-9.0) Ur Specific [place] (1.001-1.035) Urine Protein (Negative) mg/dL Urine Glucose (UA) (Negative) mg/dL Urine Ketones (Negative) mg/dL Ur Blood (Man) (Negative) Urine Nitrate (Negative) Urine Bilirubin (Negative) Urine Urobilinogen (<2.0) mg/dL Leukocyte Esterase Rfl (Negative) DARLENE/UL Urine RBC (0-2) /hpf Urine WBC (0-3) /hpf Ur Squamous Epith Cells (Few) /hpf Urine Bacteria /hpf Urine Casts Hyaline Casts (None) /lpf 01/23/25 01/23/25 01/23/25 Range/Units 16:33 16:33 16:33 WBC (4.5-10.0) K/mm3 RBC (4.6-6.20) M/mm3 Hgb (14.0-18.0) g/dL Hct (42.0-52.0) % MCV (80-100) fl MCH (26-34) pg MCHC (32-36) g/dl RDW (11.5-14.5) % Plt Count (150-375) k/mm3 MPV (7.4-10.4) fl Immature Gran % (Auto) (0-0.5) % Neut % (Auto) (45.5-73.1) % Lymph % (Auto) (18.3-44.2) % [place] % (Auto) (2.6-8.5) % Eos % (Auto) (0-4.4) % Baso % (Auto) (0.2-1.2) % Lymph # (Auto) (0.9-3.2) K/mm3 [place] # (Auto) (0.1-0.6) K/mm3 Eos # (Auto) (0-0.3) K/mm3 Baso # (Auto) (0.0-0.1) K/mm3 Abs Immat Gran (auto) (0.00-0.031) K/mm3 Absolute Neuts (auto) (1.3-6.7) K/mm3 Absolute Nucleated RBC (0.0-0.012) K/mm3 Nucleated RBC % (0.0-0.2) % Sodium (137-145) mmol/L Potassium (3.4-5.0) mmol/L Chloride (98-107) mmol/L Carbon Dioxide (22-30) mmol/L Anion Gap (4-12) mmol/L BUN 29 H (9-20) mg/dL Creatinine 3.18 H 3.14 H (0.7-1.3) mg/dL Estim Creat Clear Calc 25 25 ml/min Estimated GFR 20 L (59 - ) Glucose (65-110) mg/dL Calcium (8.4-10.2) mg/dL Magnesium (1.6-2.3) mg/dL Total Bilirubin (0.2-1.3) mg/dL AST (17-59) U/L ALT (6-50) U/L Alkaline Phosphatase (38-126) U/L Total Creatine Kinase (55-170) U/L Troponin I (0.000-0.034) ng/mL Total Protein (6.3-8.2) g/dL Albumin (3.5-5.1) g/dL Urine Color (Yellow) Urine Appearance (Clear) Urine pH (5.0-9.0) Ur Specific [place] (1.001-1.035) Urine Protein (Negative) mg/dL Urine Glucose (UA) (Negative) mg/dL Urine Ketones (Negative) mg/dL Ur Blood (Man) (Negative) Urine Nitrate (Negative) Urine Bilirubin (Negative) Urine Urobilinogen (<2.0) mg/dL Leukocyte Esterase Rfl (Negative) DARLENE/UL Urine RBC (0-2) /hpf Urine WBC (0-3) /hpf Ur Squamous Epith Cells (Few) /hpf Urine Bacteria /hpf Urine Casts Hyaline Casts (None) /lpf 01/23/25 01/23/25 01/23/25 Range/Units 16:33 16:33 16:33 WBC (4.5-10.0) K/mm3 RBC (4.6-6.20) M/mm3 Hgb (14.0-18.0) g/dL Hct (42.0-52.0) % MCV (80-100) fl MCH (26-34) pg MCHC (32-36) g/dl RDW (11.5-14.5) % Plt Count (150-375) k/mm3 MPV (7.4-10.4) fl Immature Gran % (Auto) (0-0.5) % Neut % (Auto) (45.5-73.1) % Lymph % (Auto) (18.3-44.2) % [place] % (Auto) (2.6-8.5) % Eos % (Auto) (0-4.4) % Baso % (Auto) (0.2-1.2) % Lymph # (Auto) (0.9-3.2) K/mm3 [place] # (Auto) (0.1-0.6) K/mm3 Eos # (Auto) (0-0.3) K/mm3 Baso # (Auto) (0.0-0.1) K/mm3 Abs Immat Gran (auto) (0.00-0.031) K/mm3 Absolute Neuts (auto) (1.3-6.7) K/mm3 Absolute Nucleated RBC (0.0-0.012) K/mm3 Nucleated RBC % (0.0-0.2) % Sodium (137-145) mmol/L Potassium (3.4-5.0) mmol/L Chloride (98-107) mmol/L Carbon Dioxide (22-30) mmol/L Anion Gap (4-12) mmol/L BUN (9-20) mg/dL Creatinine (0.7-1.3) mg/dL Estim Creat Clear Calc ml/min Estimated GFR 20 L (59 - ) Glucose 105 103 (65-110) mg/dL Calcium 9.7 10.0 (8.4-10.2) mg/dL Magnesium 2.0 (1.6-2.3) mg/dL Total Bilirubin 1.1 (0.2-1.3) mg/dL AST 36 (17-59) U/L ALT 28 (6-50) U/L Alkaline Phosphatase 59 (38-126) U/L Total Creatine Kinase 307 H (55-170) U/L Troponin I 0.469 H* (0.000-0.034) ng/mL Total Protein 8.1 (6.3-8.2) g/dL Albumin 4.6 (3.5-5.1) g/dL Urine Color (Yellow) Urine Appearance (Clear) Urine pH (5.0-9.0) Ur Specific [place] (1.001-1.035) Urine Protein (Negative) mg/dL Urine Glucose (UA) (Negative) mg/dL Urine Ketones (Negative) mg/dL Ur Blood (Man) (Negative) Urine Nitrate (Negative) Urine Bilirubin (Negative) Urine Urobilinogen (<2.0) mg/dL Leukocyte Esterase Rfl (Negative) DARLENE/UL Urine RBC (0-2) /hpf Urine WBC (0-3) /hpf Ur Squamous Epith Cells (Few) /hpf Urine Bacteria /hpf Urine Casts Hyaline Casts (None) /lpf 01/23/25 Range/Units 19:45 WBC (4.5-10.0) K/mm3 RBC (4.6-6.20) M/mm3 Hgb (14.0-18.0) g/dL Hct (42.0-52.0) % MCV (80-100) fl MCH (26-34) pg MCHC (32-36) g/dl RDW (11.5-14.5) % Plt Count (150-375) k/mm3 MPV (7.4-10.4) fl Immature Gran % (Auto) (0-0.5) % Neut % (Auto) (45.5-73.1) % Lymph % (Auto) (18.3-44.2) % [place] % (Auto) (2.6-8.5) % Eos % (Auto) (0-4.4) % Baso % (Auto) (0.2-1.2) % Lymph # (Auto) (0.9-3.2) K/mm3 [place] # (Auto) (0.1-0.6) K/mm3 Eos # (Auto) (0-0.3) K/mm3 Baso # (Auto) (0.0-0.1) K/mm3 Abs Immat Gran (auto) (0.00-0.031) K/mm3 Absolute Neuts (auto) (1.3-6.7) K/mm3 Absolute Nucleated RBC (0.0-0.012) K/mm3 Nucleated RBC % (0.0-0.2) % Sodium (137-145) mmol/L Potassium (3.4-5.0) mmol/L Chloride (98-107) mmol/L Carbon Dioxide (22-30) mmol/L Anion Gap (4-12) mmol/L BUN (9-20) mg/dL Creatinine (0.7-1.3) mg/dL Estim Creat Clear Calc ml/min Estimated GFR (59 - ) Glucose (65-110) mg/dL Calcium (8.4-10.2) mg/dL Magnesium (1.6-2.3) mg/dL Total Bilirubin (0.2-1.3) mg/dL AST (17-59) U/L ALT (6-50) U/L Alkaline Phosphatase (38-126) U/L Total Creatine Kinase (55-170) U/L Troponin I (0.000-0.034) ng/mL Total Protein (6.3-8.2) g/dL Albumin (3.5-5.1) g/dL Urine Color Yellow (Yellow) Urine Appearance Clear (Clear) Urine pH 5.5 (5.0-9.0) Ur Specific [place] 1.018 (1.001-1.035) Urine Protein 2+ H (Negative) mg/dL Urine Glucose (UA) Negative (Negative) mg/dL Urine Ketones Trace H (Negative) mg/dL Ur Blood (Man) Trace (Negative) Urine Nitrate Negative (Negative) Urine Bilirubin Negative (Negative) Urine Urobilinogen 0.2 (<2.0) mg/dL Leukocyte Esterase Rfl Negative (Negative) DARLENE/UL Urine RBC 0-2 (0-2) /hpf Urine WBC 6-10 H (0-3) /hpf Ur Squamous Epith Cells Moderate (Few) /hpf Urine Bacteria None seen /hpf Urine Casts >20 Hyaline Casts Present (None) /lpf <Gala Thurston MD - Last Filed: 01/24/25 06:58> Imaging Data Radiologist's impression: XR chest 2V Ordering provider: Donna Julien PA-C History: 69 years Male with . dizziness . Comparison: None. FINDINGS: MEDIASTINUM: The cardiac silhouette is not enlarged. LUNGS: No infiltrates, effusions or pneumothorax. OTHER: No free air under the diaphragm. Old healed fractures in the mid left hemithorax. S-shaped scoliosis. IMPRESSION: No acute cardiopulmonary pathology. <Donna Julien PA-C - Last Filed: 01/24/25 01:29> ECG Data EKG #1: ECG completion date: 01/23/25 <Donna Julien PA-C - Last Filed: 01/24/25 01:29> EKG Interpretation: normal rate, sinus rhythm and ST depression (T wave inversions laterally) <Donna Julien PA-C - Last Filed: 01/24/25 01:29> Critical Care Time Critical Care Time Critical Care Time: Yes <Donna Julien PA-C - Last Filed: 01/24/25 01:29> Total Critical Care Time: 35 <SUE Chaves Last Filed: 01/24/25 01:29> Discharge Plan Discharge Clinical Impression: Acute kidney injury, Elevated troponin <Gaby Munoz PA-C - Last Filed: 01/23/25 15:47> Patient Disposition: Still a Patient <SUE Sierra Last Filed: 01/23/25 15:47> Condition: Improved <Gaby Munoz PA-C - Last Filed: 01/23/25 15:47>
[2025-01-23 16:42] LABS: Hematocrit 39.8 % (42.0-52.0); Hemoglobin 13.1 g/dL (14.0-18.0); Immature Granulocyte Percent A 0.4 % (0-0.5); Lymphocytes Absolute Auto 1.00 K/mm3 (0.9-3.2); Mean Corpuscular HGB Conc 32.9 g/dl (32-36); Mean Corpuscular Hemoglobin 28.7 pg (26-34); Mean Corpuscular Volume 87.1 fl (80-100); Nucleated Red Blood Cells Absolute Auto 0.000 K/mm3 (0.0-0.012); Nucleated Red Blood Cells Perc 0.0 % (0.0-0.2); Platelet Count Result 200 k/mm3 (150-375); Red Blood Count 4.57 M/mm3 (4.6-6.20); White Blood Count 12.4 K/mm3 (4.5-10.0)
[2025-01-23 17:01] LABS: Alanine Aminotransferase 28 U/L (6-50); Albumin Level 4.6 g/dL (3.5-5.1); Alkaline Phosphatase 59 U/L (38-126); Anion Gap 12 mmol/L (4-12); Aspartate Amino Transferase 36 U/L (17-59); Bilirubin,Total 1.1 mg/dL (0.2-1.3); Blood Urea Nitrogen 28 mg/dL (9-20); Calcium 9.7 mg/dL (8.4-10.2); Carbon Dioxide 22 mmol/L (22-30); Chloride 107 mmol/L (98-107); Creatine Kinase 307 U/L (55-170); Estimated CRCL calculation 25 ml/min; Estimated Glomerular Filt Rate 20; Glucose 105 mg/dL (65-110); Magnesium 2.0 mg/dL (1.6-2.3); Potassium 4.1 mmol/L (3.4-5.0); Sodium 141 mmol/L (137-145); Total Protein 8.1 g/dL (6.3-8.2)
[2025-01-23] MEDS: SODIUM CHLORIDE 0.9% IV 1,000 ML 999 ML IV CONT (17:32)
--- NOTE | 2025-01-23 17:43 | PC.NURSE ---
patient states he does not feel as though he needs to urinate at this time, after fluids are finished, will attempt to urinate after fluids complete
--- OUTSIDE RECORDS SUMMARY | 2025-01-23 17:54 | XMS_ITS | Continuity of Care Document ---
Author Organization [employer] [facility] Address [address] [place] [id number] Phone Care Team Providers Care Civil Preparedness Training Officer Name Role Phone Mallorie BENTLEY, Tulio Unavailable Unavailable Allergies, Adverse Reactions, Alerts Substance Reaction Status Criticality No Known Allergies Active No Inform ation Procedures Procedure Date EYE EXAM, [facility] Advance Directives Directive Yes / No Effective Date File Name No Information Encounters Encounter Description Practice Location Reason(s) For Visit Diagnoses Date Provider Providers Copied on Encounter Manuel GüvenRehberi [facility], [address] [place] [address], [id number], tel:[phone] [facility] No Information 8 Mallorie Antunez. [address] [place] [address], [address] [place] [address] , . tel:[phone] [facility], [address] [place] [address], [id number], tel:[phone] [facility] cloud[facility] vis. (chief complaint) PVD (Vitreous Detachment), right eyePresbyopia 6 Yue Leigh. [address] [place] [address], [id number] , . tel:[phone] Family History Family Member Type Diagnosis Age At Onset No Information Payers Payer name Insurance type Covered green party ID Authoriza tidana(s) [facility] [id number] Social History Type Description Quantity Date Captured Comments Sex Male Smoking Status No Information Chief Complaint And Reason For Visit No Information Reason For Referral Reason For Referral No Information History Of Present Illness Encounter Date Complaint History Of Prese nt Illness cloudy vis. The 59 year old male presents for evaluation of cloudy vis. in the right eye. Pt states his vision has decreased in OS over the past 3-4 mo..Pt states he notices it more when reading, takes glasses off to read. Per pt. he has always had floaters, OU. Functional Status Date Functional Assessmen t No Information Instructions Date Instruction Additional Infor mation 1 year VAD cat/health check Rela cherelle to PVD (Vitreous Detachment), right eye Impression/Plan - Ex plained reading glasses for up close - may want to try and use your progressive lenses for driving. Related to Presbyopia Impression/Plan - Pl an: Continue to monitor. Return in 1 year for dilated exam.Discussion: Retina stable. Chances of retinal detachment, holes, or tears are highly unlikely at this point. Retina warnings given: lots of black spots, call sooner.Scribe:lc Related to PVD (Vitreous Detachment), right eye Follow up - 1 year V AD cat/health check Related to PVD (Vitreous Detachment), right eye Assessments Type Assessment Date No Information Patient Care Teams Name Effective Dates (start - stop) Status Members No Information
--- OUTSIDE RECORDS SUMMARY | 2025-01-23 17:54 | XMS_ITS | Clinical Summary ---
Author Organization [facility] Address [address] [facility] [address] [place] [address] Care Team Providers Care Laser Beam Cutter Name Role Phone Giovanni Singh MD Primary Care Provider [phone] Social History Tobacco Use Types Packs/Day Years Used Date Smoking Tobacco: Never Assessed Sex and Gender Information Value Date Recorded Sex Assigned at Not on file Legal Sex Male 5:00 PM EDT Gender Identity Not on file Sexual Orientation Not on file Last Filed Vital Signs Vital Sign Reading Time Taken Comments Blood Pressure 124/82 11/24/2014 8:50 AM EDT Pulse - - Temperature - - Respiratory Rate - - Oxygen Saturation - - Inhaled Oxygen Concentration - - Weight 97.5 kg (215 lb) 11/24/2014 8:50 AM EDT Height 180.3 cm (5' 11) 11/24/2014 8:50 AM EDT Body Mass Index 29.99 11/24/2014 8:50 AM EDT Plan of Treatment Health Maintenance Due Date Last Done Comments CT Colonography 1956 Colonoscopy 1956 Colorectal Cancer Screening 1956 FIT-DNA (Cologuard) 1956 FIT 1956 FOBT 1956 Hepatitis C Screening 1956 Lipid Panel 1956 Sigmoidoscopy 1956 Hepatitis B Screening 1974 DTaP/Tdap/Td Vaccines (1 - Tdap) 12/12/1975 Pneumococcal Vaccine: 50+ Ye ars (1 of 1 - PCV) 2006 Zoster Vaccines (1 of 2) 2006 COVID-19 Vaccine ( - 2023-2 5 season) 2024 Depression Risk Screening 07/16/2024 Fall Risk Screening 07/16/2024 SDOH Screening 07/16/2024 Influenza Vaccine (#1) 2025 HIB Vaccines Aged Out No longer eligi ble based on patient's age to complete this topic HPV Vaccines Aged Out No longer eligi ble based on patient's age to complete this topic Hepatitis A Vaccines Aged Out No long er eligible based on patient's age to complete this topic Hepatitis B Vaccines Aged Out No long er eligible based on patient's age to complete this topic IPV Vaccines Aged Out No longer eligi ble based on patient's age to complete this topic Meningococcal B Vaccine Aged Out No l onger eligible based on patient's age to complete this topic Meningococcal Vaccine Aged Out No enid margaret eligible based on patient's age to complete this topic Rotavirus Vaccines Aged Out No longer eligible based on patient's age to complete this topic Insurance [facility] Care Teams Laser Beam Cutter Relationship Specialty [place] [id number] [place] [address] PCP - General 04/09/20
--- OUTSIDE RECORDS SUMMARY | 2025-01-23 17:54 | XMS_ITS | Encounter Summary ---
Author Organization [facility] Address [address] [place] [address] Care Team Providers Care Apparel Rental Clerk Name Role Phone Becky Medley MD Primary Care Provider Raciel Daly MD Unavailable + Fam Hernandez MD Unavailable [phone] Alicia Pineda MD Unavailable [phone] Sravan Mendoza MD Unavailable [phone] Encounter Details Date Type Department Care Team (Late st Contact Info) Description 12/29/2024 Results Follow-Up [facility] [address] [place] [address] Becky Medley MD [address] [place] [address] CBC w/Diff, Comprehensive Metabolic Panel (CMP), Lipid Panel, Additional followed-up results: 2 Social History Tobacco Use Types Packs/Day Years Used Date Smoking Tobacco: Former Cigarettes Q uit: 04/03/2014 Smokeless Tobacco: Never Comments:jun 2013 Alcohol Use Standard Drinks/Week Comments Yes 1 (1 standard drink = 0.6 oz pur e alcohol) occ Sex and Gender Information Value Date Recorded Sex Assigned at Not on file Legal Sex Male 4:46 PM EST Gender Identity Not on file Sexual Orientation Not on file documented as of this encounter Functional Status * Are You Deaf or do You Have Serious Difficulty Hearing? Answer Date of Assessment Author No 05/30/2020 9:52 PM Neha Cowart RN * Patient's Vision Adequate to Safely Complete Daily Activities Answer Date of Assessment Author Yes 05/30/2020 9:52 PM Neha Cowart RN * Do You Have Serious Difficulty Walking or Climbing Stairs? Answer Date of Assessment Author No 05/30/2020 9:52 PM Neha Cowart RN * Do You Have Difficulty Dressing or Bathing? Answer Date of Assessment Author No 05/30/2020 9:52 PM Neha Cowart RN * Because of a Physical, Mental, or Emotional Condition, Do You Have Serious Difficulty Concentrating, Remembering or Making a Decision? Answer Date of Assessment Author No 05/30/2020 9:52 PM Neha Cowart RN documented as of this encounter Mental Status * Because of a Physical, Mental or Emotional Problem, Do You Have Difficulty Doing Errands Alone Suchas Visiting a Doctor's Office or Shopping? 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 [address] [place] [address] Pulmonary Disease 05/30/21 Sravan Mendoza MD [address] [facility] [address] [place] [address] 05/30/21 documented as of this encounter
--- OUTSIDE RECORDS SUMMARY | 2025-01-23 17:54 | XMS_ITS | Clinical Summary ---
Author Organization [facility] Address [address] [place] [address] Care Team Providers Care Package Sealer Machine Name Role Phone Becky Medley MD Primary Care Provider Raciel Daly MD Unavailable + Fam Hernandez MD Unavailable [phone] Alicia Pineda MD Unavailable [phone] Sravan Mendoza MD Unavailable Allergies Active Allergy Reactions Criticality Noted Date Comments Lisinopril Other (See Comments) 10/12/2021 Nsaids 05/30/2020 CKD Medications cholecalciferol 25 MCG (1000 UT) tabletIndication s:Vitamin D deficiency Take 1 tablet by mouth daily. 90 tablet 3 4 Active Additional Information Patient not taking.Reported on 11/18/2024 triamcinolone (KENALOG) 0.1 % ointmentIndicati ons:Atopic dermatitis, unspecified type APPLY TOPICALLY TO AFFECTED AREA(S) TOPICALLY TWICE DAILY FOR 14 DAYS 90 g 4 Active busPIRone (BUSPAR) 10 MG tabletIndication s:Anxiety Take 1 tablet by mouth 2 (two) times daily as needed (anxiety). 180 tablet 3 4 05/19/20 25 Active rosuvastatin (CRESTOR) 20 MG tabletIndication s:Dyslipidemia, goal LDL below 130,Coronary artery disease involving [place] heart without angina pectoris, unspecified vessel or lesion type Take 1 tablet by mouth nightly. 90 tablet 3 4 Active losartan (COZAAR) 50 MG tabletIndication s:Primary hypertension Take 1.5 tablets by mouth daily. 135 tablet 3 5 11/19/19 26 Active fluticasone (FLONASE) 50 MCG/ACT nasal sprayIndications :Acute bacterial sinusitis Instill 1 spray in each nostril daily. 1 each 5 Active Active Problems Problem Noted Date Diagnosed Date Vitamin D deficiency 08/20/2023 Peyronie disease 02/22/2023 CAD (coronary artery disease), [place] coronary a rtery 03/30/2021 Overview (03/30/2021): Single nonobstructive CAD as seen on Cath at [facility] 03/2021 Acute kidney injury superimposed on CKD 05/31/20 Left nephrolithiasis 05/30/2020 BRENDAN on CPAP 04/07/2019 CKD stage G3a/A2, GFR 45-59 and albumin creatinine ratio 30-299 mg/g 04/01/2018 Dyslipidemia, goal LDL below 130 04/06/2017 Hydronephrosis with renal an d ureteral calculous obstruction 12/31/2016 Fibromatosis, Dupuytren's 03/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 Resolved Problems Problem Noted Date Diagnosed Date Resolved Date Renal insufficiency 01/01/2017 09/28/19 22 Encounters Date Type Department Care Team Description 12/29/2024 Results Follow-Up [address] [address] Becky Medley MD CBC w/Diff, Comprehensive Metabolic Panel (CMP), Lipid Panel, Additional followed-up results: 2 12/12/2024 8:00 AM EDT Telemedicine [address] [place] [address] Clay Rich APRN Acute bacterial sinusitis (Primary Dx) 11/18/2024 10:00 AM EDT Office Visit [address] [address] Becky Medley MD Annual physical exam (Primary Dx); Primary hypertension; Colon cancer screening; Prediabetes; CKD (chronic kidney disease) stage 2, GFR 60-89 ml/min; Dyslipidemia, goal LDL below 130; Prostate cancer screening; Psoriasis; BRENDAN on CPAP from Last 3 Months Immunizations Immunization Administration Dates Next Due COVID-19 Pfizer PURPLE Ages 12 and Older 021,10/26/2020,10/05/2020 Influenza Vaccine High-Dose Quadrivalent 65+ Pf 07/23/2023 Influenza Vaccine Quadrivalent Pf 05/30/2021, Influenza Vaccine Tri High Dose 65+ PF Pneumococcal Conjugate 20-Valent 10/09/2022 Tdap 04/07/2019 Family History Medical History Relation Comments Hypertension Father Hyperlipidemia Mother Mental illness Neg Hx Substance abuse Neg Hx Relation Status Comments Father Mother Social History Tobacco Use Types Packs/Day Years Used Date Smoking Tobacco: Former Cigarettes Q uit: 04/03/2014 Smokeless Tobacco: Never Tobacco Cessation:Counseling Given: Not Answered Comments:jun 2013 Alcohol Use Standard Drinks/Week Comments Yes 1 (1 standard drink = 0.6 oz pur e alcohol) occ Sex and Gender Information Value Date Recorded Sex Assigned at Not on file Legal Sex Male 4:46 PM EST Gender Identity Not on file Sexual Orientation Not on file Last Filed Vital Signs Vital Sign Reading Time Taken Comments Blood Pressure 130/90 11/18/2024 9:56 AM EDT Stressful morning Pulse 62 11/18/2024 9:56 AM EDT Temperature 36.3 C (97.4 F) 11/18/2024 9:56 AM EDT Respiratory Rate 16 05/19/2024 8:57 AM EST Oxygen Saturation 99% 11/18/2024 9:5 6 AM EDT Inhaled Oxygen Concentration - - Weight 106.7 kg (235 lb 3.7 oz) 11/18/2024 9:56 AM EDT Height 177.8 cm (5' 10) 11/18/2024 9:5 6 AM EDT Body Mass Index 33.75 11/18/2024 9:56 AM EDT Plan of Treatment Health Maintenance Due Date Last Done Comments CT Colonography 1955 Colonoscopy 1955 FIT 1955 FOBT 1955 Sigmoidoscopy 1955 Annual SDOH Screening 07/16/2024 Shingles (Shingrix) (1 of 2) 02/18/2025 Postponed from 2006 (Patient Refused) Influenza Vaccine (#1) 2025 , 07/23/2023, 05/30/2021, Additional history exists Colorectal Cancer Screening 11/25/2027 FIT-DNA 11/25/2027 11/24/2024 Tdap/Td Vaccine >11 yo (2 - Td or Tdap) 04/07/2029 04/07/2019 Hepatitis C Screening Completed 04/02/2017, 016 Abdominal Aortic Aneurysm (AAA) Screen Completed 09/04/2022 Pneumococcal Vaccines >50 yo Completed 10/09/2022 Haemophilus Influenzae Type B (Hib) Vaccine Aged Out No longer eligible based on patient's age to complete this topic Hepatitis A (HepA) Vaccine Aged Out N o longer eligible based on patient's age to complete this topic Hepatitis B (HepB) Vaccine Aged Out N o longer eligible based on patient's age to complete this topic Meningococcal ACWY Aged Out No longer eligible based on patient's age to complete this topic Polio (IPV) Aged Out No longer eligi ble based on patient's age to complete this topic Rotavirus (RV) Vaccine Aged Out No lo nger eligible based on patient's age to complete this topic Medical Devices Implanted Type Area [employer]her [employer]ary Service Supervisor Device Identifier Shelf Expiration Date Model / Serial / Lot Stent Ure Plr [id number] - [id number] Implanted:Qty: 1 on 01/01/[address] Raciel Daly MD at [facility] Urinary Left: Ureter [employer] DEVAN 10/09/2019 [id number] / / [id number] Description:Left ureter no s tring Stent Dbl Pigtl [id number] - [id number] Implanted:Qty: 1 on 08/21/2020 by Raciel Andrews MD at [facility] Urinary Left: Ureter nooked 05/12/2025 [id number] / / [id number] Description:With string Procedures Procedure Name Priority Date/Time Associated Diagnosis Comments PSA (ORDER FOR DIAGNOSIS) Routine 12/25/2024 1:30 PM EDT Prostate cancer screening LIPID PANEL Routine 12/25/2024 1:30 PM EDT Dyslipidemia, goal LDL below 130 COMPREHENSIVE METABOLIC PANEL (CMP) Routine 12/25/2024 1:30 PM EDT Annual physical exam CKD (chronic kidney disease) stage 2, GFR 60-89 ml/min CBC W/DIFF Routine 12/25/2024 1:30 PM EDT Annual physical exam HEMOGLOBIN A1C Routine 12/25/2024 Prediabetes COLOGUARD - [employer] [facility] Routine 11/24/2024 8:25 AM EDT Colon cancer screening POCT GLYCOSYLATED HEMOGLOBIN (HGB A1C) Routine 11/18/2024 11:22 AM EDT Prediabetes NVL AAA SCREENING Routine 09/04/2022 7:5 1 AM EST Former light tobacco smoker Encounter for screening for abdominal aortic aneurysm (AAA) in patient 50 years of age or older with history of smoking HEPATITIS C ANTIBODY Routine 04/02/2017 Need for hepatitis C screening test from Last 3 Months or Most Recently Relevant to Health Maintenance Results * CBC w/Diff (12/25/2024 1:30 PM EDT) Blood us Becky Medley MD LAB BLOOD ORDERABLES Final R esult EXTERNAL * PSA (12/25/2024 1:30 PM EDT) Blood VENOUS BLOOD SPECIMEN / Unknown Becky Medley MD GENETIC AND MALIGNANCY LABS Final Result EXTERNAL * Lipid Panel (12/25/2024 1:30 PM EDT) Blood VENOUS BLOOD SPECIMEN / Unknown Becky Medley MD LAB BLOOD ORDERABLES Final R esult EXTERNAL * Comprehensive Metabolic Panel (CMP) (12/25/2024 1:30 PM EDT) Blood Becky Medley MD LAB BLOOD ORDERABLES Final R esult Performing Organization Address [facility]/ZIP Co de Phone Number EXTERNAL * Hemoglobin A1C (12/25/2024) Hemoglobin A2X-ZUI 5.6 4.5 - 6.2 % EXTERNAL Blood 12/25/2024 Result [facility] Becky Medley MD LAB BLOOD ORDERABLES Edited Result - Final Performing Organization Address City/[facility]/ZIP Co de Phone Number EXTERNAL * Cologuard - [employer] [use Z12.11 AND Z12.12] (11/24/2024 8:25 AM EDT) NONINV COLON CA DNA+OCC BLD SCRN STL QL Negative Negative [employer] (CLIA #:[id number]) Comment: The Cologuard (TM) test was performed on this specimen. NEGATIVE TEST RESULT. A negative Cologuard result indicates a low likelihood that a colorectal cancer (CRC) or advanced adenoma (adenomatous polyps with more advanced pre-malignant features) is present. The chance that a person with a negative Cologuard test has a colorectal cancer is less than 1 in 1500 (negative predictive value >99.9%) or has an advanced adenoma is less than 5.3% (negative predictive value 94.7%). These data are based on a prospective cross-sectional study of 10,000 individuals at average risk for colorectal cancer who were screened with both Cologuard and colonoscopy. (Rojelio Dias al, N Engl J Med 2014;370(14):1286- 1297) The normal value (reference range) for this assay is negative. COLOGUARD RE-SCREENING RECOMMENDATION: Periodic colorectal cancer screening is an important part of preventive healthcare for asymptomatic individuals at average risk for colorectal cancer. Following a negative Cologuard result, the [place] [employer] and U.S. Multi-Society Task Force screening guidelines recommend a Cologuard re-screening interval of 3 years. References: [place] [employer] Guideline for Colorectal Cancer Screening: https://www.cancer.org/cancer/klsvm-zjfbhi-lmnnjl/vezixmbyj-gglwkjqqn-wrgyenz/ac s-rec ommendations.html.; Chapito DK, Risa JARAMILLO, Tony WilsonK, Colorectal Cancer Screening: Recommendations for Physicians and Patients from the U.S. Multi-Society Task Force on Colorectal Cancer Screening , Am J Gastroenterology 2017; 112:8838-9050. TEST DESCRIPTION: Composite algorithmic analysis of stool DNA-biomarkers with hemoglobin immunoassay. Quantitative values of individual biomarkers are not reportable and are not associated with individual biomarker result reference ranges. Cologuard is intended for colorectal cancer screening of adults of either sex, 45 years or older, who are at average-risk for colorectal cancer (CRC). Cologuard has been approved for use by the U.S. FDA. The performance of Cologuard was established in a cross sectional study of average-risk adults aged 50-84. Cologuard performance in patients ages 45 to 49 years was estimated by sub-group analysis of near-age groups. Colonoscopies performed for a positive result may find as the most clinically significant lesion: colorectal cancer [4.0%], advanced adenoma (including sessile serrated polyps greater than or equal to 1cm diameter) [20%] or non- advanced adenoma [31%]; or no colorectal neoplasia [45%]. These estimates are derived from a prospective cross-sectional screening study of 10,000 individuals at average risk for colorectal cancer who were screened with both Cologuard and colonoscopy. (Rojelio Last, N Engl J Med 2014;370(14):7276-5070.) Cologuard may produce a false negative or false positive result (no colorectal cancer or precancerous polyp present at colonoscopy follow up). A negative Cologuard test result does not guarantee the absence of CRC or advanced adenoma (pre-cancer). The current Cologuard screening interval is every 3 years. ([place] [employer] and U.S. Multi-Society Task Force). Cologuard performance data in a 10,000 patient pivotal study using colonoscopy as the reference method can be accessed at the following location: www.DanceJam.com/results. Additional description of the Cologuard test process, warnings and precautions can be found at www.cologJob2Dayrd.com. Stool STOOL SPECIMEN / Unknown 11/24/2024 8:25 AM EDT 11/25/2024 9:34 AM EDT Becky Medley MD BODY FLUIDS AND STOOLS ORDER BALJINDER Final Result Performing Organization Address City/[facility] [[email or web address]] Co de Phone Number [employer] [facility] [place] [address], [facility] [phone] [employer] (CLIA #:[id number]) [address] [place] [address] * POCT Glycosylated Hemoglobin (Hb A1C) (REVIEW PROCESS INSTRUCTIONS AT ORDERING AND COLLECTING) (11/18/2024 11:22 AM EDT) Hemoglobin [id number] 5.3 4.3 - 5.6 % [facility] Internal QC Yes [facility] Lot Number [id number] [facility] Expiration Date 06-03-2026 [facility] Comment-POCT [facility] Blood BLOOD SPECIMEN FROM PATIENT / Unknown 11/18/2024 11:22 AM EDT Becky Medley MD POINT OF CARE TEST ORDERABLE S Final Result Performing Organization Address City/[facility]/ZIP Co de Phone Number [facility] [address] [place] [address] * NVL AAA Screening (09/04/2022 7:51 AM EST) Anatomical Region Laterality Modality Vascular Noninvasive Vasc ular Lab 09/04/2022 12:5 2 PM EST Narrative 09/04/2022 12:52 PM EST REVIEWING YOUR TEST RESULTS IN [employer]ART IS NOT A SUBSTITUTE FOR DISCUSSING THOSE RESULTS WITH YOUR HEALTH CARE PROVIDER. PLEASE CONTACT YOUR PROVIDER VIA [employer] TO DISCUSS ANY QUESTIONS OR CONCERNS YOU MAY HAVE REGARDING THESE TEST RESULTS. RADIOLOGY REPORT FACILITY: [facility] AGE/GENDER: AGE: 66 Y GENDER: M PATIENT NAME/: JOSE FIGUEROA : 1955 UNIT NUMBER: [id number] ACCESSION NUMBER: [id number] ACCOUNT: PROCEDURE PERFORMED: NVL AAA SCREENING Conclusions: Aorta and iliac arteries without evidence of aneurysmal disease. No previous examination for comparison. THIS DOCUMENT HAS BEEN ELECTRONICALLY SIGNED BY: Jody Gonzalez DO Procedure Note Sunshine Gonzalez DO - 09/04/2022 REVIEWING YOUR TEST RESULTS IN MY[facility]CHART IS NOT A SUBSTITUTE FORDISCUSSING THOSE RESULTS WITH YOUR HEALTH CARE PROVIDER. PLEASE CONTACT YOUR PROVIDER VIA [employer] TO DISCUSS ANY QUESTIONS ORCONCERNS YOU MAY HAVE REGARDING THESE TEST RESULTS. RADIOLOGY REPORT FACILITY: [facility] AGE/GENDER: AGE: 66 Y GENDER: M PATIENT NAME/: JOSE FIGUEROA : 1955 UNIT NUMBER: [id number] ACCESSION NUMBER: [id number] ACCOUNT: PROCEDURE PERFORMED: NVL AAA SCREENING Conclusions: Aorta and iliac arteries without evidence of aneurysmaldisease. No previous examination for comparison. THIS DOCUMENT HAS BEEN ELECTRONICALLY SIGNED BY: Jody Gonzalez DO us Becky Medley MD IMG NON-INVASIVE VASCULAR LA B Final Result * Hepatitis C Antibody (for screen 1943-) (04/02/2017) Lab BLOOD SPECIMEN FROM PATIENT / Unknown us Becky Medley MD LAB BLOOD ORDERABLES Final R esult EXTERNAL from Last 3 Months or Most Recently Relevant to Health Maintenance Insurance [facility] Advance Directives * Full Code (Latest Code Status on File) Date Activated Date Inactivated Comments 05/30/2020 9:43 PM 05/31/2020 4:53 PM * Full Code Date Activated Date Inactivated Comments 12/31/2016 11:21 PM 01/01/2017 5:21 PM Care Teams Package Sealer Machine Relationship Specialty Start Date End Date Becky Medley MD [address] [facility] [place] [address] PCP - General Internal Medicine 03/28/17 Raciel Daly MD [address] [facility] [address] [place], [place] [id number] Fellow Physician Urology 03/29/17 Fam Hernandez MD [address] [facility] [address] [place], [place] [id number] Fellow Physician Hand Surgery 03/29/17 Alicia Pineda MD [address] [facility] [address] [place], [place] [id number] Pulmonary Disease 05/30/21 Sravan Mendoza MD [address] [facility] [address] [place], [place] [id number] 05/30/21
--- OUTSIDE RECORDS SUMMARY | 2025-01-23 17:54 | XMS_ITS | Clinical Summary ---
Author Organization [facility] Address [address] [place] [address] Care Team Providers Care Psychiatric Arnp Name Role Phone Becky Medley MD Primary Care Provider + [phone] Allergies Active Allergy Reactions Criticality Noted Date Comments Lisinopril Cough 10/12/2021 Medications aspirin (aspirin) 81 MG EC tablet Take 1 tablet by mouth Daily. 30 tablet 1 Active Additional Information Patient taking differently:81 mg Oral Daily,Pt reports he does not take everyday, Reported on 11/15/2022 losartan (Cozaar) 50 MG tablet Take 1 tablet by mouth Daily. 90 tablet 3 2 Active rosuvastatin (CRESTOR) 20 MG tablet Take 1 tablet by mouth Every Night. 4 Active triamcinolone (KENALOG) 0.1 % ointment APPLY TOPICALLY TO AFFECTED AREA(S) TWICE DAILY FOR 14 DAYS 4 Active Active Problems Problem Noted Date Diagnosed Date Precordial pain 03/25/2021 Overview (03/25/2021): Added automatically from request for surgery [id number] Abnormal EKG 03/25/2021 Overview (03/25/2021): Added automatically from request for surgery [id number] Immunizations Immunization Administration Dates Next Due COVID-19 (PFIZER) Purple Cap Monovalent 10/27/19 21,10/05/2020 Family History Medical History Relation Name Comments Colon cancer Father Relation Name Status Comments Father Social History Tobacco Use Types Packs/Day Years Used Date Smoking Tobacco: Former Cigarettes Q uit: 2021 Passive Smoke Exposure: Never Smokeless Tobacco: Never Tobacco Cessation:Counseling Given: No Comments:Rarely smokes cig. (not daily) Alcohol Use Standard Drinks/Week Comments Yes 0 (1 standard drink = 0.6 oz pure alcohol) caffiene - tea / very little alcohol Sex and Gender Information Value Date Recorded Sex Assigned at Not on file Legal Sex Male 9:31 AM EDT Gender Identity Not on file Sexual Orientation Not on file Last Filed Vital Signs Vital Sign Reading Time Taken Comments Blood Pressure 153/78 08/26/2024 8:09 AM EST Pulse 78 08/26/2024 8:09 AM EST Temperature 36.7 C (98.1 F) 03/28/2021 8:18 AM EDT Respiratory Rate 18 03/28/2021 12:25 PM EDT Oxygen Saturation 96% 08/26/2024 8:09 AM EST Inhaled Oxygen Concentration - - Weight 106 kg (233 lb) 08/26/2024 8:09 AM EST Height 180.3 cm (5' 11) 08/26/2024 8:09 AM EST Body Mass Index 32.5 08/26/2024 8:09 AM EST Plan of Treatment Upcoming Encounters Date Type Department Care Team (Late st Contact Info) Description 02/18/2025 9:00 AM EDT Office Visit [facility] CARD[facility] [address] [facility] [address] [place] [id number] Manuel Steven Jr., MD [address] [facility] [address] [place] [address] 08/28/2025 9:00 AM EST Office Visit [facility] SLEEP [facility] [address] [facility] [address] [place] [address] Ariana Melgar, KIM [address] [facility] [address] [place] [address] Health Maintenance Due Date Last Done Comments COLOGUARD 2001 COLON CANCER SCREENING 5 YEA R SIGMOIDOSCOPY 2001 COLONOSCOPY [address]ER SCREENING [address] CT COLONOGRAPHY 2001 FECAL OCCULT BLOOD TEST 2001 FIT Testing (1 year) 2001 ZOSTER VACCINE (1 of 2) 2006 ANNUAL PHYSICAL 11/04/2018 COVID-19 Vaccine (4 - 2023-2 5 season) 2024 07/01/2021, 10/26/2020, 10/05/2020 INFLUENZA VACCINE 04/15/2025 05/19/2024, , 05/30/2021, Additional history exists TDAP/TD VACCINES (2 - Td or Tdap) 04/07/2029 019 HEPATITIS C SCREENING Completed 04/02/2017 Pneumococcal Vaccine 50+ Completed 10/09/2022 AAA SCREEN ONCE Completed 01/29/2024, 08/17, 05/30/2020, Additional history exists Insurance Care Teams Psychiatric Arnp Relationship Specialty Start Date End Date Becky Medley MD [address] [place] [address] PCP - General Internal Medicine 11/04/18
--- OUTSIDE RECORDS SUMMARY | 2025-01-23 17:54 | XMS_ITS | Clinical Summary ---
Author Organization [facility] Address [address] [place] [address] Phone Care Team Providers Care Circus Agent Name Role Phone Becky Medley MD Primary Care Provider Allergies Active Allergy Reactions Criticality Noted Date Comments Lisinopril Cough,Other (see comments) 2 Nsaids 05/30/2020 CKD Medications losartan (COZAAR) 50 MG tablet Take 50 mg by mouth in the morning. 2 Active rosuvastatin (CRESTOR) 20 MG tablet Take 20 mg by mouth in the morning. 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 Coronary arteriosclerosis 03/30/2021 Overview (01/16/2024): Single nonobstructive CAD as seen on Cath at [facility] 03/2021 Electrocardiogram abnormal 03/25/2021 Overview (01/16/2024): Added automatically from request for surgery [id number] Precordial pain 03/25/2021 Overview (01/16/2024): Added automatically from request for surgery [id number] Renal stone 05/30/2020 Obstructive sleep apnea syndrome 04/07/2019 Hydronephrosis with renal an d ureteral calculous obstruction 12/31/2016 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 Social History Tobacco Use Types Packs/Day Years Used Date Smoking Tobacco: Never Smokeless Tobacco: Never Tobacco Cessation:Counseling Given: Not Answered Sex and Gender Information Value Date Recorded Sex Assigned at Not on file Legal Sex Male 3:21 PM MDT Gender Identity Not on file Sexual Orientation Not on file Last Filed Vital Signs Vital Sign Reading Time Taken Comments Blood Pressure 147/75 09/17/2024 2:43 PM EST Pulse 66 09/17/2024 2:43 PM EST Temperature 36.7 C (98.1 F) 09/17/2024 2:43 PM EST Respiratory Rate 18 09/17/2024 2:43 PM EST Oxygen Saturation 99% 09/17/2024 2:43 PM EST Inhaled Oxygen Concentration - - Weight 107 kg (235 lb) 09/17/2024 2:43 PM EST Height 180.3 cm (5' 11) 09/17/2024 2:43 PM EST Body Mass Index 32.78 09/17/2024 2:43 PM EST Plan of Treatment Upcoming Encounters Date Type Department Care Team (Late st Contact Info) Description 03/18/2025 1:30 PM EDT Office Visit [facility] [address] [place] [address] Jocelynn White MD, FACP, FASN [address] [place], [place] [phone] Health Maintenance Due Date Last Done Comments Pneumococcal PPSV23/PCV13 65 + Years / High and Highest Risk (1 of 5 - PCV) 12/12/1975 COVID-19 Vaccine (2023- season) 2024 07/01/2021, 10/26/2020, 10/05/2020 Influenza Vaccine (#1) 2025 05/30/2021, 2019 Insurance [employer] Care Teams Circus Agent Relationship Specialty Start Date End Date Becky Medley MD [address] [place] [address] PCP - General Family Medicine 01/16/24
--- NOTE | 2025-01-23 18:04 | PC.NURSE ---
patient declined any cardiac history- patient spouse called and stated that a few years ago he had a cardiac cath done and his LAD is 20% blocked.
[2025-01-23] MEDS: LACTATED RINGERS 1,000 ML 999 ML IV CONT (18:31)
--- NOTE | 2025-01-23 18:39 | PC.NURSE ---
patient has hx of stage three chronic kidney disease, last creatinine was 1.34 per . patient still unable to provide urine sample, second liter of fluids infusing at this time, educated that we may need a straight cath to empty his bladder.
--- NOTE | 2025-01-23 19:36 | PC.NURSE ---
Report received from PEDRO Prieto. Assumed care of patient at this time.
--- NOTE | 2025-01-23 19:43 | PC.NURSE ---
patient ambulated to the bathroom appropriately with a steady gait and was able to provide a urine sample this time
[2025-01-23 19:56] LABS: Anion Gap 13 mmol/L (4-12); Blood Urea Nitrogen 29 mg/dL (9-20); Calcium 10.0 mg/dL (8.4-10.2); Carbon Dioxide 23 mmol/L (22-30); Chloride 105 mmol/L (98-107); Estimated CRCL calculation 25 ml/min; Estimated Glomerular Filt Rate 20; Glucose 103 mg/dL (65-110); Potassium 4.2 mmol/L (3.4-5.0); Sodium 141 mmol/L (137-145)
[2025-01-23 20:39] LABS: Add Urine Microscopic? YES; Appearance Urine Clear (Clear); Glucose Urine UA Negative (Negative); Leukocyte Esterase Ur Negative LEU/UL (Negative); Nitrate Urine Negative (Negative); Non Pathogenic Casts >20; Specific Grav Ur 1.018 (1.001-1.035)
--- NOTE | 2025-01-23 20:44 | ECG_ITS ---
Test Date: 2025-01-23 20:49:11 Measurements Intervals [place] Rate: 73 P: 35 WI: 216 QRS: -6 QRSD: 100 T: 129 QT: 409 QTc: 453 Interpretive Statements SINUS RHYTHM WITH FIRST DEGREE AV BLOCK ST DEVIATION AND T-WAVE ABNORMALITY, CONSIDER ISCHEMIA Electronically Signed On 01-24-2025 08:12:41 CDT by Davion Spann D.O
[2025-01-23 21:26] LABS: Troponin I 0.469 ng/mL (0.000-0.034)
--- NOTE | 2025-01-23 22:51 | PC.NURSE ---
[id number] Sari, patients calls for update.
[2025-01-23 22:57] LABS: Troponin I 1.220 ng/mL (0.000-0.034)
--- NOTE | 2025-01-23 23:27 | PC.NURSE ---
Patients Sari called and message left.
--- NOTE | 2025-01-23 23:29 | PC.NURSE ---
2330 Sari, patients calls back to verify update. Sari was given room number patient will be admitted to.
[2025-01-23] MEDS: ENOXAPARIN 100 MG/ML SYRINGE SUB-Q (23:33)
[2025-01-23 23:43] LABS: INR 1.1; Partial Thromboplastin Time 27.4 Seconds (22.3-36.8); Prothrombin Time 14.0 Seconds (11.1-14.7)
[2025-01-23 23:59] LABS: NT Pro B Type Natriuretic Pept 422 pg/mL (19.9-100)
[2025-01-24] VITALS (20 sets, daily range): BP systolic 103–153; BP diastolic 58–79; PULSE 56–72; RESP 15–20; TEMP 36.6–36.9; O2SAT 95–100; BMI 31.3
--- NOTE | 2025-01-24 | ECHO_ITS ---
Patient Info Name: Neo Valera Age: 69 years : 1955 Gender: Male Ht: 71 in Wt: 224 lbs BSA: 2.28 m2 HR: 57 bpm BP: 133 / 67 mmHg Heart Rhythm: Sinus Rhythm Technical Quality: Good Exam Date: 01/24/2025 10:15 AM Patient Status: I Admit Date: 01/23/2025 Exam Type: CA echo doppler color flow Complete two-dimensional, color flow and Doppler transthoracic echocardiogram is performed. Staff Referring Physician: Edward Burrell Associate Chemist: Ellie Jaimes Attending Provider: Dk Gomez Summary 1. Complete two-dimensional, color flow and Doppler transthoracic echocardiogram is performed. 2. Left ventricular chamber dimension is normal. 3. Left ventricular systolic function is normal, estimated at 65-70. 4. There is moderate asymmetric septal increased left ventricular wall thickness. 5. The left ventricular diastolic function is grade I diastolic dysfunction. 6. Left atrial chamber dimension is mildly enlarged. 7. There is mild to moderate mitral valve regurgitation. 8. There is mild tricuspid valve regurgitation. Left Ventricle Left ventricular chamber dimension is normal. Left ventricular systolic function is normal, estimated at 65-70. There is moderate asymmetric septal increased left ventricular wall thickness. The left ventricular diastolic function is grade I diastolic dysfunction. Right Ventricle Right ventricular chamber dimension is normal. Right ventricular systolic function is normal. Left Atria Left atrial chamber dimension is mildly enlarged. Right Atria Right atrial chamber dimension is normal. Atrial Septum Intact interatrial septum visualized by color flow imaging. Aortic Valve The aortic valve is trileaflet. There is mild aortic valve sclerosis. There is no aortic valve stenosis. There is trace aortic valve regurgitation. Pulmonic Valve The pulmonic valve is normal. There is no pulmonic valve stenosis. There is trace pulmonic regurgitation. Mitral Valve The mitral valve has normal leaflets. There is no mitral valve stenosis. There is mild to moderate mitral valve regurgitation. Tricuspid Valve The tricuspid valve leaflets are normal. There is no significant tricuspid valve stenosis. There is mild tricuspid valve regurgitation. Pericardium/Pleural The pericardium appears normal. There is no pericardial effusion. Inferior Vena Cava Normal inferior vena cava with >50% collapse upon inspiration consistent with normal right atrial pressure, 5 mmHg. Aorta The aortic root size at the sinus of Valsalva is normal. Left Ventricular Outflow Tract Name Value Normal LVOT 2D LVOT Diameter 2.2 cm LVOT Doppler LVOT Peak Velocity 114 cm/s LVOT Peak Gradient 5 mmHg LVOT Mean Gradient 3 mmHg LVOT VTI 30 cm LVOT Stroke Volume 116 ml LVOT CO 6.6 l/min LVOT CI 2.9 l/min/m2 Pulmonic Valve Name Value Normal RVOT Doppler RVOT Peak Velocity 66 cm/s RVOT Peak Gradient 2 mmHg PV Doppler PV Peak Velocity 88 cm/s PV Peak Gradient 3 mmHg Mitral Valve Name Value Normal MV Regurgitation Doppler MR Peak Gradient 122 mmHg MV Diastolic Function MV E Peak Velocity 79 cm/s MV A Peak Velocity 90 cm/s MV E/A 0.9 MV Decel Time (PW) 237 ms MV Annular TDI MV E/e' (Septal) 11.0 MV E/e' (Lateral) 10.5 MV E/e' (Average) 10.8 Tricuspid Valve Name Value Normal Estimated PAP/RSVP RA Pressure 5 mmHg <=5 Aortic Valve Name Value Normal AV Doppler AV Peak Velocity 159 cm/s AV Peak Gradient 10 mmHg AV Area (Cont Eq Jose) 2.7 cm2 AV DI (Jose) 0.72 AV Regurgitation 2D LVOT Area 3.8 cm2 Ventricles Name Value Normal LV Dimensions 2D/MM IVS Diastolic Thickness (2D) 1.3 cm 0.6-1.0 LVID Diastole (2D) 4.2 cm 4.2-5.8 LVIW Diastolic Thickness (2D) 1.3 cm 0.6-1.0 LVID Systole (2D) 2.8 cm 2.5-4.0 LVOT Diameter 2.2 cm LV Mass (2D Cubed) 210.33 g 88.00-224.00 LV Mass Index (2D Cubed) 92 g/m2 49-115 Relative Wall Thickness (2D) 0.63 <=0.42 LV Fractional Shortening/Ejection Fraction 2D/MM LV Fractional Shortening (2D) 34 % 25-43 LV EF (2D Teichholz) 64 % LV EF (BP MOD) 62 % 52-72 Atria Name Value Normal LA Dimensions LA Volume (4C A-L) 70 ml LA Volume (BP A-L) 70 ml RA Dimensions RA Systolic Major [place] Length (4C) 5.7 cm 2.1-2.7 RA Area (4C) 15.4 cm2 <=18.0 EchoPAC Name Value Normal AutoEF LVCO_BiP_Q (Ffjd1MDI) 4.3 l/min LVEF_BiP_Q (Jtnt4CIY) 62 % LVSV_BiP_Q (Cvmn4SWR) 74 ml LVVED_BiP_Q (Gnwb6GIP) 119 ml LVVES_BiP_Q (Oqmw4VZD) 45 ml HR_4Ch_Q (Qczn6FME) 56 bpm LVCO_4Ch_Q (Nmjc5FJS) 3.6 l/min LVEF_4Ch_Q (Szrv4GNM) 57 % LVLd_4Ch_Q (Pklv2IAI) 9.1 cm LVLs_4Ch_Q (Gagi8UGT) 7.7 cm LVSV_4Ch_Q (Gajp3INR) 65 ml LVVED_4Ch_Q (Kknw6DIG) 114 ml LVVES_4Ch_Q (Fqmw4EFB) 49 ml HR_2Ch_Q (Rgld0RCQ) 56 bpm LVCO_2Ch_Q (Wukl1DVL) 5.0 l/min LVEF_2Ch_Q (Dxue5FFY) 69 % LVLd_2Ch_Q (Sdvw0DFN) 8.3 cm LVLs_2Ch_Q (Axft9PBR) 6.7 cm LVSV_2Ch_Q (Mdoe7PYL) 90 ml LVVED_2Ch_Q (Vfuw3FIF) 132 ml LVVES_2Ch_Q (Bxdc4MHQ) 41 ml Report Signatures
--- NOTE | 2025-01-24 00:14 | ADMGEN ---
This patient, Neo Valera, was admitted to IMU Room 209-. Patient/family oriented to hospital policies and general routines including ID bracelet, bed and alarms, visiting hours, pain management, procedures, bathroom and other care routines, personal items, smoking policy, room service/diet, and visiting hours. Information on how to activate the Rapid Response Team has been discussed. Patient/Family are encouraged to report perceived risks to care and to ask questions if they do not understand what they are told or what they should do.
--- NOTE | 2025-01-24 00:45 | PM.IMHP ---
H&P: HPI History of Present Illness Date/Time: 01/24/25 03:00 Chief Complaint: Possible heat exhaustion. Narrative: This is a very pleasant 69-year-old male with hypertension, hyperlipidemia, benign prostatic hyperplasia, and chronic kidney disease (last creatinine was around 1.7) who presented to the emergency department via private vehicle for evaluation of possible heat exhaustion. 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 It was hot outside and he tried to stay hydrated by drinking Gatorade. They also did not walk and used a cart. After 4 hours of play he began to feel dizzy and lightheaded and not long thereafter he developed muscle cramping, nausea, and had several episodes of nonbloody and nonbilious emesis. He denies syncope, fever, cold and flu symptoms, chest pain, pleuritic pain, shortness of breath, lower extremity edema, and calf pain. In the ED: Vital signs were stable on arrival. Labs are significant for WBC count of 12.4, hemoglobin 13.1, BUN 29, creatinine 3.14, total CK 307, troponin 0.046, proBNP 422. Chest x-ray showed no acute findings. EKG showed sinus rhythm with first-degree AV block and findings of left ventricular hypertrophy and ST-T change. With further questioning patient reports that he had a stress test and subsequent cardiac catheterization done a couple years ago for evaluation of an abnormal echocardiogram and there were no significant findings. 3 hour troponin came back at 1.220 and he was given enoxaparin 1 milligram/kilogram and he is being admitted in this setting for close monitoring, cardiology consultation, and hydration. Review of Systems Review of Systems: 12 systems were reviewed and are negative except for as per HPI. [facility] Past Medical History Medical History (Updated 01/24/25 @ 05:46 by Miroslava Orona PA-C) Kidney stones Benign prostatic hyperplasia Chronic kidney disease Hyperlipidemia Hypertension Surgical History Surgical History (Updated 01/24/25 @ 05:43 by Miroslava Orona PA-C) History of cardiac catheterization Social History Social History (Updated 01/24/25 @ 05:43 by Miroslava Orona PA-C) Social History: Surrogate medical decision maker: Sari Moraima, spouse. Code status: Full code. Smoking status: Never smoker Second hand tobacco smoke exposure: No Alcohol intake: unknown Substance use: never Do You Feel Safe in your Home?: Yes Lack of Transportation: No Lack of Food: Never True Current Housing: I Have Housing Concerned About Future Housing: No Difficulty Paying Gas/Electric Bills: No Difficulty Paying for Meds: No Currently Unemployed: No Education: Master's Degree or Higher Difficulty w/ Childcare or Family Care: No Spiritual care concerns: No Meds Home Medications and Allergies Home Medications ?Medication ?Instructions ?Recorded ?Confirmed ?Type losartan 50 mg tablet 75 mg PO DAILY 01/24/25 01/24/25 History rosuvastatin 20 mg tablet 20 mg PO DAILY 01/24/25 01/24/25 History Allergies Allergy/AdvReac Type Severity Reaction Status Date / Time ibuprofen AdvReac Intermediate Other Verified 01/23/25 17:34 Vital Signs Vital Signs - 24 hr 01/23/25 15:30 01/23/25 17:25 01/23/25 18:33 Temperature 97.6 F 98.5 F Pulse Rate 72 70 74 Respiratory Rate 16 17 19 Blood Pressure 126/64 138/68 139/70 Pulse Oximetry 100 99 97 Oxygen Delivery Room Air Room Air 01/23/25 18:33 01/23/25 19:00 01/23/25 19:16 Temperature Pulse Rate 74 70 Respiratory Rate 22 H 18 Blood Pressure 143/63 H Pulse Oximetry 96 99 99 Oxygen Delivery 01/23/25 19:20 01/23/25 19:32 01/23/25 19:45 Temperature Pulse Rate 71 Respiratory Rate 20 21 H Blood Pressure Pulse Oximetry 96 96 100 Oxygen Delivery 01/23/25 20:14 01/23/25 20:15 01/23/25 20:39 Temperature Pulse Rate 71 73 65 Respiratory Rate 18 18 Blood Pressure Pulse Oximetry Oxygen Delivery 01/23/25 20:57 01/23/25 21:00 01/23/25 21:01 Temperature Pulse Rate 71 71 71 Respiratory Rate 20 19 22 H Blood Pressure 133/54 L Pulse Oximetry Oxygen Delivery 01/23/25 22:11 01/23/25 22:15 01/23/25 22:32 Temperature Pulse Rate Respiratory Rate Blood Pressure Pulse Oximetry 96 94 98 Oxygen Delivery 01/23/25 22:45 01/23/25 23:40 01/24/25 00:15 Temperature 98.2 F Pulse Rate 68 66 62 Respiratory Rate 18 17 16 Blood Pressure 135/63 135/64 144/59 H Pulse Oximetry 98 98 95 Oxygen Delivery 01/24/25 00:36 Temperature Pulse Rate Respiratory Rate Blood Pressure Pulse Oximetry Oxygen Delivery Room Air Exam Narrative: General: Well-developed, nontoxic-appearing male supine in bed in no distress. Weight: 1.9 kg. BMI: 31.3. HEENT: PERRL, EOMI. Sclera anicteric. Oral mucosa moist. Neck: Supple. Respiratory: Lungs are clear to auscultation bilaterally. Cardiovascular: Regular rate and rhythm with S1-S2. Gastrointestinal: Abdomen is soft, nontender, and nondistended with positive bowel sounds. Skin: Warm and dry. No rash or lesions on limited exam. Extremities: No cyanosis, clubbing, or edema. Radial and pedal pulses intact. No palpable knots or cords. Negative Mer sign bilaterally. Neurological: Alert. Cranial nerves grossly intact. No gross focal deficits to casual conversation. Psychiatric: Pleasant and cooperative with normal mood and affect. Judgment and insight intact. H&P: Results Labs Labs: Short CBC 01/23/25 Range/Units 16:33 WBC 12.4 H (4.5-10.0) K/mm3 Hgb 13.1 L (14.0-18.0) g/dL Hct 39.8 L (42.0-52.0) % Plt Count 200 (150-375) k/mm3 BMP 01/23/25 01/23/25 01/23/25 16:33 16:33 16:33 Sodium 141 141 Potassium 4.1 4.2 Chloride 107 Carbon Dioxide BUN Creatinine Glucose Calcium 01/23/25 01/23/25 01/23/25 16:33 16:33 16:33 Sodium Potassium Chloride 105 Carbon Dioxide 22 23 BUN 28 H 29 H Creatinine 3.18 H Glucose Calcium 01/23/25 01/23/25 01/23/25 16:33 16:33 16:33 Sodium Potassium Chloride Carbon Dioxide BUN Creatinine 3.14 H Glucose 105 103 Calcium 9.7 10.0 Cardiac Enzymes 01/23/25 01/23/25 Range/Units 16:33 22:21 Total Creatine Kinase 307 H (55-170) U/L Troponin I 0.469 H* 1.220 H* D (0.000-0.034) ng/mL Liver Function 01/23/25 Range/Units 16:33 Total Bilirubin 1.1 (0.2-1.3) mg/dL AST 36 (17-59) U/L ALT 28 (6-50) U/L Alkaline Phosphatase 59 (38-126) U/L Albumin 4.6 (3.5-5.1) g/dL Urine 01/23/25 Range/Units 19:45 Urine Color Yellow (Yellow) Urine Appearance Clear (Clear) Urine pH 5.5 (5.0-9.0) Ur Specific [place] 1.018 (1.001-1.035) Urine Protein 2+ H (Negative) mg/dL Urine Glucose (UA) Negative (Negative) mg/dL Impressions Chest X-Ray 01/23/25 23:27 IMPRESSION: No acute cardiopulmonary pathology. Assessment and Plan Assessment and plan (1) Non-ST elevation myocardial infarction (NSTEMI): Code(s): I21.4 - Non-ST elevation (NSTEMI) myocardial infarction Status: Acute (2) Heat exhaustion: Code(s): T67.5XXA - Heat exhaustion, unspecified, initial encounter Status: Acute (3) Acute on chronic kidney failure: Code(s): N17.9 - Acute kidney failure, unspecified; N18.9 - Chronic kidney disease, unspecified Status: Acute (4) Hypertension: Code(s): I10 - Essential (primary) hypertension Status: Acute (5) Hyperlipidemia: Code(s): E78.5 - Hyperlipidemia, unspecified Status: Acute Plan The patient presented to the emergency department for evaluation of lightheadedness, dizziness, nausea, vomiting, and muscle cramps after playing golf in the heat yesterday as detailed in HPI. Labs, imaging, EKG, and all reports were personally reviewed. History is consistent with heat exhaustion. He has acute on chronic kidney failure which is likely related to dehydration. Total CK is elevated slightly but not 5x upper limit of normal. He will be judiciously hydrated with close monitoring of volume status, renal function and electrolytes. All medications will be renally dosed and nephrotoxic agents will be avoided. If no improvement with IV fluids alone, a further workup will need to be pursued. Troponins were ordered in the emergency department due to and abnormal EKG and came back modestly elevated with increasing levels on serial troponins. The patient has no complaints whatsoever of chest pain or shortness of breath and likely this is a type 2 non STEMI in the setting of heat exhaustion. Nonetheless we will ask Cardiology to see him in consultation for their opinion. Blood pressures were reviewed and they have been reasonable. Monitor closely as losartan is currently on hold. The rest of his home medications will be reviewed and resumed as appropriate. Findings and treatment plan were discussed with the patient. Questions were solicited and answered to satisfaction. The patient's medical management will be taken over by the hospitalist team in a.m. Quality VTE Prophylaxis VTE prophylaxis: pharmacologic ordered The patient has been admitted under observation status. Hospitalist MIPS Advance Care Plan I have confirmed that the patient's Advanced Care Plan is present, code status is documented, or surrogate decision maker is listed in patient medical record.: Yes Medication Reconciliation I have utilized all available resources to obtain, update and review the patients current medications (includes all prescriptions, OTC, herbals, cannabis, and nutritional supplements).: Yes
[2025-01-24 02:12] LABS: Troponin I 1.360 ng/mL (0.000-0.034)
[2025-01-24 05:54] LABS: Hematocrit 34.7 % (42.0-52.0); Hemoglobin 11.3 g/dL (14.0-18.0); Mean Corpuscular HGB Conc 32.6 g/dl (32-36); Mean Corpuscular Hemoglobin 28.9 pg (26-34); Mean Corpuscular Volume 88.7 fl (80-100); Platelet Count Result 165 k/mm3 (150-375); Red Blood Count 3.91 M/mm3 (4.6-6.20); White Blood Count 8.0 K/mm3 (4.5-10.0)
[2025-01-24 06:15] LABS: Alanine Aminotransferase 20 U/L (6-50); Albumin Level 3.7 g/dL (3.5-5.1); Alkaline Phosphatase 53 U/L (38-126); Anion Gap 8 mmol/L (4-12); Aspartate Amino Transferase 34 U/L (17-59); Bilirubin,Total 0.8 mg/dL (0.2-1.3); Blood Urea Nitrogen 32 mg/dL (9-20); Calcium 8.6 mg/dL (8.4-10.2); Carbon Dioxide 20 mmol/L (22-30); Chloride 110 mmol/L (98-107); Estimated CRCL calculation 36 ml/min; Estimated Glomerular Filt Rate 30; Glucose 88 mg/dL (65-110); Magnesium 2.1 mg/dL (1.6-2.3); Potassium 3.7 mmol/L (3.4-5.0); Sodium 138 mmol/L (137-145); Total Protein 6.5 g/dL (6.3-8.2)
[2025-01-24 06:16] LABS: Creatine Kinase 410 U/L (55-170)
[2025-01-24 06:27] LABS: Troponin I 1.210 ng/mL (0.000-0.034)
--- NOTE | 2025-01-24 08:33 | P.PNIM_ITS ---
Progress Note: A&P Assessment and Plan (1) Non-ST elevation myocardial infarction (NSTEMI): Code(s): I21.4 - Non-ST elevation (NSTEMI) myocardial infarction Status: Acute (2) Heat exhaustion: Code(s): T67.5XXA - Heat exhaustion, unspecified, initial encounter Status: Acute (3) Acute on chronic kidney failure: Code(s): N17.9 - Acute kidney failure, unspecified; N18.9 - Chronic kidney disease, unspecified Status: Acute (4) Hypertension: Code(s): I10 - Essential (primary) hypertension Status: Acute (5) Hyperlipidemia: Code(s): E78.5 - Hyperlipidemia, unspecified Status: Acute Plan This is a very pleasant 69-year-old male with hypertension, hyperlipidemia, benign prostatic hyperplasia, and chronic kidney disease (last creatinine was around 1.7) who presented to the emergency department via private vehicle for evaluation of possible heat exhaustion. 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 It was hot outside and he tried to stay hydrated by drinking Gatorade. They also did not walk and used a cart instead. After 4 hours of play he began to feel dizzy and lightheaded and not long thereafter he developed muscle cramping, nausea, and had several episodes of nonbloody and nonbilious emesis. He denies s yncope, fever, cold and flu symptoms, chest pain, pleuritic pain, shortness of breath, lower extremity edema, and calf pain. In the ED: Vital signs were stable on arrival. Labs are significant for WBC count of 12.4, hemoglobin 13.1, BUN 29, creatinine 3.14, total CK 307, troponin 0.046, proBNP 422. Chest x-ray showed no acute findings. EKG showed sinus rhythm with first-degree AV block and findings of left ventricular hypertrophy and ST-T change. With further questioning patient reports that he had a stress test and subsequent cardiac catheterization done a couple years ago for evaluation of an abnormal echocardiogram and there were no significant findings. 3 hour troponin came back at 1.220 and he was given enoxaparin 1 milligram/kilogram and he is being admitted in this setting for close monitoring, cardiology consultation, and hydration. Non ST-elevation FL. troponin trend: 0.469-1 0.2-1 0.3-1.2. Received Lovenox therapeutic dose. Cardiology consulted. EKG with ST-T changes in lateral leads. No prior EKG to compare. Will check echo DEVANG on CKD unknown baseline level. Creatinine is 3.18 on admission. Continues to improve Mild rhabdomyolysis CK elevated 410 Elevated D-dimer DVT prophylaxis Lovenox Code status full code Subjective Date/time seen: 01/24/25 08:33 Interval history: Chart reviewed. Denies any chest pain or shortness of breath. Feels better. Getting echo done this a.m.. Review of Systems Review of Systems: All systems reviewed & are unremarkable except as noted in HPI and below Exam Narrative: General: Well-developed, nontoxic-appearing male supine in bed in no distress. HEENT: PERRL, EOMI. Sclera anicteric. Oral mucosa moist. Neck: Supple. Respiratory: Lungs are clear to auscultation bilaterally. No Respiratory distress Cardiovascular: Regular rate and rhythm with S1-S2. Gastrointestinal: Abdomen is soft, nontender, and nondistended with positive bowel sounds. Skin: Warm and dry. No rash or lesions on limited exam. Extremities: No cyanosis, clubbing, or edema. Radial and pedal pulses intact. No palpable knots or cords. Negative Mer sign bilaterally. Neurological: Alert. Cranial nerves grossly intact. No gross focal deficits to casual conversation. Psychiatric: Pleasant and cooperative with normal mood and affect. Judgment and insight intact. Objective Data Vital Signs Vital Signs: Vital Signs - 24 hr 01/23/25 15:30 01/23/25 17:25 01/23/25 18:33 Temperature 97.6 F 98.5 F Pulse Rate 72 70 74 Respiratory Rate 16 17 19 Blood Pressure 126/64 138/68 139/70 Pulse Oximetry 100 99 97 Oxygen Delivery Room Air Room Air 01/23/25 18:33 01/23/25 19:00 01/23/25 19:16 Temperature Pulse Rate 74 70 Respiratory Rate 22 H 18 Blood Pressure 143/63 H Pulse Oximetry 96 99 99 Oxygen Delivery 01/23/25 19:20 01/23/25 19:32 01/23/25 19:45 Temperature Pulse Rate 71 Respiratory Rate 20 21 H Blood Pressure Pulse Oximetry 96 96 100 Oxygen Delivery 01/23/25 20:14 01/23/25 20:15 01/23/25 20:39 Temperature Pulse Rate 71 73 65 Respiratory Rate 18 18 Blood Pressure Pulse Oximetry Oxygen Delivery 01/23/25 20:57 01/23/25 21:00 01/23/25 21:01 Temperature Pulse Rate 71 71 71 Respiratory Rate 20 19 22 H Blood Pressure 133/54 L Pulse Oximetry Oxygen Delivery 01/23/25 22:11 01/23/25 22:15 01/23/25 22:32 Temperature Pulse Rate Respiratory Rate Blood Pressure Pulse Oximetry 96 94 98 Oxygen Delivery 01/23/25 22:45 01/23/25 23:40 01/24/25 00:15 Temperature 98.2 F Pulse Rate 68 66 62 Respiratory Rate 18 17 16 Blood Pressure 135/63 135/64 144/59 H Pulse Oximetry 98 98 95 Oxygen Delivery 01/24/25 00:36 01/24/25 02:00 01/24/25 03:36 Temperature Pulse Rate 71 Respiratory Rate Blood Pressure Pulse Oximetry Oxygen Delivery Room Air Room Air 01/24/25 04:00 01/24/25 04:00 01/24/25 06:00 Temperature 98.4 F Pulse Rate 64 69 62 Respiratory Rate 15 Blood Pressure 133/61 Pulse Oximetry 100 Oxygen Delivery 01/24/25 07:17 01/24/25 07:18 01/24/25 07:19 Temperature 97.8 F 97.8 F Pulse Rate 60 60 63 Respiratory Rate 20 20 Blood Pressure 142/58 H 142/58 H 144/65 H Pulse Oximetry 98 98 Oxygen Delivery 01/24/25 07:21 Temperature Pulse Rate 62 Respiratory Rate Blood Pressure 133/67 Pulse Oximetry Oxygen Delivery Intake/Output Intake/Output: Intake & Output 01/21/25 01/22/25 01/23/25 01/24/25 23:59 23:59 23:59 23:59 Intake Total 1999 300 Output Total 400 Balance 1999 - Meds/Results Medications: Active Medications Generic Name Dose Route Start Last Admin Trade Name Freq PRN Reason Stop Dose Admin Acetaminophen 650 mg 01/24/25 05:52 Acetaminophen 325 Mg Tablet PO Q6H PRN Mild Pain (1-3) or Fever Enoxaparin Sodium 40 mg 01/24/25 09:00 Enoxaparin 40 Mg/0.4 Ml Syringe SUB-Q DAILY RK Lactated Ringer's 1,000 mls @ 100 mls/hr 01/24/25 05:55 Lr - Lactated Ringers Iv IV CONT .Q10H RK Rosuvastatin Calcium 20 mg 01/24/25 09:00 Rosuvastatin 20 Mg Tablet PO DAILY [facility] Radiology Results: ITS Impressions Chest X-Ray 01/23/25 23:27 IMPRESSION: No acute cardiopulmonary pathology. Labs Labs: Laboratory Results - last 24 hr 01/23/25 01/23/25 01/23/25 16:33 16:33 16:33 WBC 12.4 H RBC 4.57 L Hgb 13.1 L Hct 39.8 L MCV 87.1 MCH 28.7 MCHC 32.9 RDW 13.2 Plt Count 200 MPV 10.7 H Immature Gran % (Auto) 0.4 Neut % (Auto) 83.6 H Lymph % (Auto) 8.1 L [place] % (Auto) 7.7 Eos % (Auto) 0.0 Baso % (Auto) 0.2 Lymph # (Auto) 1.00 [place] # (Auto) 1.0 H Eos # (Auto) 0.0 Baso # (Auto) 0.0 Abs Immat Gran (auto) 0.05 H Absolute Neuts (auto) 10.4 H Absolute Nucleated RBC 0.000 Nucleated RBC % 0.0 PT INR APTT D-Dimer Sodium 141 141 Potassium 4.1 4.2 Chloride 107 Carbon Dioxide Anion Gap BUN Creatinine Estim Creat Clear Calc Estimated GFR Glucose Calcium Magnesium Total Bilirubin AST ALT Alkaline Phosphatase Total Creatine Kinase Troponin I NT-Pro-B Natriuret Pep Total Protein Albumin Urine Color Urine Appearance Urine pH Ur Specific [place] Urine Protein Urine Glucose (UA) Urine Ketones Ur Blood (Man) Urine Nitrate Urine Bilirubin Urine Urobilinogen Leukocyte Esterase Rfl Urine RBC Urine WBC Ur Squamous Epith Cells Urine Bacteria Urine Casts Hyaline Casts 01/23/25 01/23/25 01/23/25 16:33 16:33 16:33 WBC RBC Hgb Hct MCV MCH MCHC RDW Plt Count MPV Immature Gran % (Auto) Neut % (Auto) Lymph % (Auto) [place] % (Auto) Eos % (Auto) Baso % (Auto) Lymph # (Auto) [place] # (Auto) Eos # (Auto) Baso # (Auto) Abs Immat Gran (auto) Absolute Neuts (auto) Absolute Nucleated RBC Nucleated RBC % PT INR APTT D-Dimer Sodium Potassium Chloride 105 Carbon Dioxide 22 23 Anion Gap 12 13 H BUN 28 H Creatinine Estim Creat Clear Calc Estimated GFR Glucose Calcium Magnesium Total Bilirubin AST ALT Alkaline Phosphatase Total Creatine Kinase Troponin I NT-Pro-B Natriuret Pep Total Protein Albumin Urine Color Urine Appearance Urine pH Ur Specific [place] Urine Protein Urine Glucose (UA) Urine Ketones Ur Blood (Man) Urine Nitrate Urine Bilirubin Urine Urobilinogen Leukocyte Esterase Rfl Urine RBC Urine WBC Ur Squamous Epith Cells Urine Bacteria Urine Casts Hyaline Casts 01/23/25 01/23/25 01/23/25 16:33 16:33 16:33 WBC RBC Hgb Hct MCV MCH MCHC RDW Plt Count MPV Immature Gran % (Auto) Neut % (Auto) Lymph % (Auto) [place] % (Auto) Eos % (Auto) Baso % (Auto) Lymph # (Auto) [place] # (Auto) Eos # (Auto) Baso # (Auto) Abs Immat Gran (auto) Absolute Neuts (auto) Absolute Nucleated RBC Nucleated RBC % PT INR APTT D-Dimer Sodium Potassium Chloride Carbon Dioxide Anion Gap BUN 29 H Creatinine 3.18 H 3.14 H Estim Creat Clear Calc 25 25 Estimated GFR 20 L Glucose Calcium Magnesium Total Bilirubin AST ALT Alkaline Phosphatase Total Creatine Kinase Troponin I NT-Pro-B Natriuret Pep Total Protein Albumin Urine Color Urine Appearance Urine pH Ur Specific [place] Urine Protein Urine Glucose (UA) Urine Ketones Ur Blood (Man) Urine Nitrate Urine Bilirubin Urine Urobilinogen Leukocyte Esterase Rfl Urine RBC Urine WBC Ur Squamous Epith Cells Urine Bacteria Urine Casts Hyaline Casts 01/23/25 01/23/25 01/23/25 16:33 16:33 16:33 WBC RBC Hgb Hct MCV MCH MCHC RDW Plt Count MPV Immature Gran % (Auto) Neut % (Auto) Lymph % (Auto) [place] % (Auto) Eos % (Auto) Baso % (Auto) Lymph # (Auto) [place] # (Auto) Eos # (Auto) Baso # (Auto) Abs Immat Gran (auto) Absolute Neuts (auto) Absolute Nucleated RBC Nucleated RBC % PT INR APTT D-Dimer Sodium Potassium Chloride Carbon Dioxide Anion Gap BUN Creatinine Estim Creat Clear Calc Estimated GFR 20 L Glucose 105 103 Calcium 9.7 10.0 Magnesium 2.0 Total Bilirubin 1.1 AST 36 ALT 28 Alkaline Phosphatase 59 Total Creatine Kinase 307 H Troponin I 0.469 H* NT-Pro-B Natriuret Pep Total Protein 8.1 Albumin 4.6 Urine Color Urine Appearance Urine pH Ur Specific [place] Urine Protein Urine Glucose (UA) Urine Ketones Ur Blood (Man) Urine Nitrate Urine Bilirubin Urine Urobilinogen Leukocyte Esterase Rfl Urine RBC Urine WBC Ur Squamous Epith Cells Urine Bacteria Urine Casts Hyaline Casts 01/23/25 01/23/25 01/23/25 19:45 22:21 23:21 WBC RBC Hgb Hct MCV MCH MCHC RDW Plt Count MPV Immature Gran % (Auto) Neut % (Auto) Lymph % (Auto) [place] % (Auto) Eos % (Auto) Baso % (Auto) Lymph # (Auto) [place] # (Auto) Eos # (Auto) Baso # (Auto) Abs Immat Gran (auto) Absolute Neuts (auto) Absolute Nucleated RBC Nucleated RBC % PT 14.0 INR 1.1 APTT 27.4 D-Dimer 0.70 H Sodium Potassium Chloride Carbon Dioxide Anion Gap BUN Creatinine Estim Creat Clear Calc Estimated GFR Glucose Calcium Magnesium Total Bilirubin AST ALT Alkaline Phosphatase Total Creatine Kinase Troponin I 1.220 H* D NT-Pro-B Natriuret Pep Total Protein Albumin Urine Color Yellow Urine Appearance Clear Urine pH 5.5 Ur Specific [place] 1.018 Urine Protein 2+ H Urine Glucose (UA) Negative Urine Ketones Trace H Ur Blood (Man) Trace Urine Nitrate Negative Urine Bilirubin Negative Urine Urobilinogen 0.2 Leukocyte Esterase Rfl Negative Urine RBC 0-2 Urine WBC 6-10 H Ur Squamous Epith Cells Moderate Urine Bacteria None seen Urine Casts >20 Hyaline Casts Present 01/23/25 01/24/25 01/24/25 23:30 01:35 05:46 WBC 8.0 RBC 3.91 L Hgb 11.3 L Hct 34.7 L MCV 88.7 MCH 28.9 MCHC 32.6 RDW 13.3 Plt Count 165 MPV 10.8 H Immature Gran % (Auto) Neut % (Auto) Lymph % (Auto) [place] % (Auto) Eos % (Auto) Baso % (Auto) Lymph # (Auto) [place] # (Auto) Eos # (Auto) Baso # (Auto) Abs Immat Gran (auto) Absolute Neuts (auto) Absolute Nucleated RBC Nucleated RBC % PT INR APTT D-Dimer Sodium 138 Potassium 3.7 Chloride 110 H Carbon Dioxide 20 L Anion Gap 8 BUN 32 H Creatinine 2.19 H Estim Creat Clear Calc 36 Estimated GFR 30 L Glucose 88 Calcium 8.6 Magnesium 2.1 Total Bilirubin 0.8 AST 34 ALT 20 Alkaline Phosphatase 53 Total Creatine Kinase 410 H Troponin I 1.360 H* 1.210 H* NT-Pro-B Natriuret Pep 422 H Total Protein 6.5 Albumin 3.7 Urine Color Urine Appearance Urine pH Ur Specific [place] Urine Protein Urine Glucose (UA) Urine Ketones Ur Blood (Man) Urine Nitrate Urine Bilirubin Urine Urobilinogen Leukocyte Esterase Rfl Urine RBC Urine WBC Ur Squamous Epith Cells Urine Bacteria Urine Casts Hyaline Casts
[2025-01-24] MEDS: ROSUVASTATIN 20 MG TABLET PO (08:38)
[2025-01-24] MEDS: LACTATED RINGERS 1,000 ML 100 ML IV CONT ×2 (08:38→18:31)
--- NOTE | 2025-01-24 14:52 | P.CONCA_ITS ---
Assessment and Plan Assessment and plan (1) Elevated troponin: Code(s): R79.89 - Other specified abnormal findings of blood chemistry Status: Acute Assessment and Plan: Elevated troponin likely secondary to heat exhaustion. Troponins have peaked and down trending. Did not have any chest pain. Has significant EKG abnormalities but these are not new. Will check a 2D echocardiogram with Doppler. Continue to rehydrate. He does have a cardiology appointment in [facility] already scheduled for early February. Depending on the results of the echocardiogram, will consider conservative management versus stress testing versus invasive workup. Unlikely to pursue an invasive workup here Though especially given his renal failure. (2) Coronary artery disease: Code(s): I25.10 - Atherosclerotic heart disease of [place] coronary artery without angina pectoris Status: Acute Assessment and Plan: Known 20-30 percent mid LAD stenosis. Continue losartan and rosuvastatin. He has an NSAID allergy and will at least prescribe him clopidogrel 75 mg p.o. daily while workup is in process (3) Hypertension: Code(s): I10 - Essential (primary) hypertension Status: Acute Assessment and Plan: On losartan (4) Heat exhaustion: Code(s): T67.5XXA - Heat exhaustion, unspecified, initial encounter Status: Acute Assessment and Plan: Receiving IV fluids and feeling better (5) Acute on chronic kidney failure: Code(s): N17.9 - Acute kidney failure, unspecified; N18.9 - Chronic kidney disease, unspecified Status: Acute Assessment and Plan: Significantly improved. Creatinine initially over 3 and now around 2.1. Baseline around 1.4 per patient. (6) Hyperlipidemia: Code(s): E78.5 - Hyperlipidemia, unspecified Status: Acute Assessment and Plan: Continue rosuvastatin History of Present Illness History of Present Illness Consult date/time: 01/24/25 14:52 Requesting physician: Donna Julien PA-C Consult reason: Other (Abnormal ECG, elevated troponins) Reason For Visit: DEVANG Narrative: Date of service 01/24/2025 Requesting provider: Donna Julien Reason for consultation: Abnormal ECG, elevated troponin History patient is a 69-year-old male who lives in [facility] who does have a known abnormal ECG and did undergo a cardiac catheterization in 2020. He did have a 20-30% mid LAD lesion but no obstructive disease elsewhere. 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 He did drink 2 bottles of Gatorade but it was hot outside and my around the 9 hole he started feel dizzy and lightheaded and by the end of the around, he did not feel very well at all. He states he was really quite dizzy and lightheaded. He in her of going to his sister's house who called 911 and the patient was brought here for further workup evaluation and treatment. Patient did have muscle cramps, nausea as well as vomiting. Initial troponins were elevated at 0.469 and peaked at 1.36. EKG shows anterolateral ST and T-wave abnormalities, consistent with LVH with repolarization abnormality versus ischemia. In reviewing old EKGs from [facility], these EKG abnormalities are not new. He currently feels much better. He denies any chest pain. No shortness of breath, syncope, paroxysmal nocturnal dyspnea, orthopnea, edema palpitations. Did have some back of the neck pain yesterday. Review of Systems 2 Review of Systems: All systems reviewed & are unremarkable except as noted in HPI and below Constitutional: Constitutional: Denies body ache(s) Eyes: Eyes: Denies blurry vision ENT: Reports Normal hearing present Cardiovascular: Cardiovascular: Denies chest pain and Denies palpitations Respiratory: Respiratory: Denies dyspnea Gastrointestinal: Gastrointestinal: Denies abdominal pain and Reports vomiting Genitourinary: Genitourinary: Denies hematuria Musculoskeletal: Musculoskeletal: Reports back pain Integumentary/Breasts: Skin/Breast: Denies pruritus Neurologic: Denies Abnormal speech present Psychiatric: Psychiatric: Denies anxiety and Denies behavioral changes Endocrine: Endocrine: Denies excessive sweating Hematologic/Lymphatic: Hematologic/Lymphatic: Denies easy bleeding Allergic/Immunologic: Allergic/Immunologic: Denies GI upset with certain foods PMFSH Past Medical History Medical History (Updated 01/24/25 @ 14:59 by Rene White MD) Coronary artery disease Kidney stones Benign prostatic hyperplasia Chronic kidney disease Hyperlipidemia Hypertension Surgical History Surgical History (Updated 01/24/25 @ 05:43 by Miroslava Orona PA-C) History of cardiac catheterization Family History Family History (Updated 01/24/25 @ 14:57 by Rene White MD) Mother Hypertension Social History Social History (Updated 01/24/25 @ 05:43 by Miroslava Orona PA-C) Social History: Surrogate medical decision maker: Sari Valera, spouse. Code status: Full code. Smoking status: Never smoker Second hand tobacco smoke exposure: No Alcohol intake: unknown Substance use: never Do You Feel Safe in your Home?: Yes Lack of Transportation: No Lack of Food: Never True Current Housing: I Have Housing Concerned About Future Housing: No Difficulty Paying Gas/Electric Bills: No Difficulty Paying for Meds: No Currently Unemployed: No Education: Master's Degree or Higher Difficulty w/ Childcare or Family Care: No Spiritual care concerns: No Meds Home Medications and Allergies Home Medications ?Medication ?Instructions ?Recorded ?Confirmed ?Type losartan 50 mg tablet 75 mg PO DAILY 01/24/25 01/24/25 History rosuvastatin 20 mg tablet 20 mg PO DAILY 01/24/25 01/24/25 History Allergies Allergy/AdvReac Type Severity Reaction Status Date / Time ibuprofen AdvReac Intermediate Other Verified 01/23/25 17:34 Vital Signs Vital Signs - 24 hr 01/23/25 15:30 01/23/25 17:25 01/23/25 18:33 Temperature 36.4 C 36.9 C Pulse Rate 72 70 74 Respiratory Rate 16 17 19 Blood Pressure 126/64 138/68 139/70 Pulse Oximetry 100 99 97 Oxygen Delivery Room Air Room Air 01/23/25 18:33 01/23/25 19:00 01/23/25 19:16 Temperature Pulse Rate 74 70 Respiratory Rate 22 H 18 Blood Pressure 143/63 H Pulse Oximetry 96 99 99 Oxygen Delivery 01/23/25 19:20 01/23/25 19:32 01/23/25 19:45 Temperature Pulse Rate 71 Respiratory Rate 20 21 H Blood Pressure Pulse Oximetry 96 96 100 Oxygen Delivery 01/23/25 20:14 01/23/25 20:15 01/23/25 20:39 Temperature Pulse Rate 71 73 65 Respiratory Rate 18 18 Blood Pressure Pulse Oximetry Oxygen Delivery 01/23/25 20:57 01/23/25 21:00 01/23/25 21:01 Temperature Pulse Rate 71 71 71 Respiratory Rate 20 19 22 H Blood Pressure 133/54 L Pulse Oximetry Oxygen Delivery 01/23/25 22:11 01/23/25 22:15 01/23/25 22:32 Temperature Pulse Rate Respiratory Rate Blood Pressure Pulse Oximetry 96 94 98 Oxygen Delivery 01/23/25 22:45 01/23/25 23:40 01/24/25 00:15 Temperature 36.8 C Pulse Rate 68 66 62 Respiratory Rate 18 17 16 Blood Pressure 135/63 135/64 144/59 H Pulse Oximetry 98 98 95 Oxygen Delivery 01/24/25 00:36 01/24/25 02:00 01/24/25 03:36 Temperature Pulse Rate 71 Respiratory Rate Blood Pressure Pulse Oximetry Oxygen Delivery Room Air Room Air 01/24/25 04:00 01/24/25 04:00 01/24/25 06:00 Temperature 36.9 C Pulse Rate 64 69 62 Respiratory Rate 15 Blood Pressure 133/61 Pulse Oximetry 100 Oxygen Delivery 01/24/25 07:17 01/24/25 07:18 01/24/25 07:19 Temperature 36.6 C 36.6 C Pulse Rate 60 60 63 Respiratory Rate 20 20 Blood Pressure 142/58 H 142/58 H 144/65 H Pulse Oximetry 98 98 Oxygen Delivery 01/24/25 07:21 01/24/25 08:00 01/24/25 09:58 Temperature Pulse Rate 62 65 67 Respiratory Rate Blood Pressure 133/67 Pulse Oximetry Oxygen Delivery 01/24/25 11:28 01/24/25 12:00 01/24/25 14:00 Temperature 36.8 C Pulse Rate 56 L 62 72 Respiratory Rate 20 Blood Pressure 150/59 H Pulse Oximetry 98 Oxygen Delivery Exam 2 Narrative: Alert oriented appears stated age Const: General: comfortable and no acute distress HENMT: Face/Nose/Sinus: Normal nares present Mouth: Yes moist mucous membranes Eyes: General: appearance normal, both eyes and all related structures S clera: sclerae normal Neck: Neck: supple and no JVD Chest: Other: No reproducible chest wall pain to palpation Resp: Effort & Inspection: normal respiratory effort Auscultation: clear to auscultation bilaterally Cardio: Rate: regular rate Rhythm: regular rhythm Heart sounds: no murmurs GI: Inspection: non-distended GI Palp: Yes Soft to palpation A uscultation: normal bowel sounds Skin: General skin exam: normal color Neuro: Speech: normal speech Sensory Exam: normal sensation Extrem: General: normal to inspection Psych: Mental Status: mental status grossly normal Affect: normal affect Results Labs and Meds 01/24/25 05:46 01/24/25 05:46 Lab results: Cardiac Enzymes 01/23/25 01/23/25 01/24/25 Range/Units 16:33 22:21 01:35 AST 36 (17-59) U/L Troponin I 0.469 H* 1.220 H* D 1.360 H* (0.000-0.034) ng/mL 01/24/25 Range/Units 05:46 AST 34 (17-59) U/L Troponin I 1.210 H* (0.000-0.034) ng/mL Coagulation 01/23/25 Range/Units 23:21 PT 14.0 (11.1-14.7) Seconds APTT 27.4 (22.3-36.8) Seconds CBC 01/23/25 01/24/25 Range/Units 16:33 05:46 WBC 12.4 H 8.0 (4.5-10.0) K/mm3 RBC 4.57 L 3.91 L (4.6-6.20) M/mm3 Hgb 13.1 L 11.3 L (14.0-18.0) g/dL Hct 39.8 L 34.7 L (42.0-52.0) % Plt Count 200 165 (150-375) k/mm3 Lymph # (Auto) 1.00 (0.9-3.2) K/mm3 [place] # (Auto) 1.0 H (0.1-0.6) K/mm3 Eos # (Auto) 0.0 (0-0.3) K/mm3 Baso # (Auto) 0.0 (0.0-0.1) K/mm3 Comprehensive Metabolic Panel 01/23/25 01/23/25 01/23/25 Range/Units 16:33 16:33 16:33 Sodium 141 141 (137-145) mmol/L Potassium 4.1 4.2 (3.4-5.0) mmol/L Chloride 107 (98-107) mmol/L Carbon Dioxide (22-30) mmol/L BUN (9-20) mg/dL Creatinine (0.7-1.3) mg/dL Glucose (65-110) mg/dL Calcium (8.4-10.2) mg/dL AST (17-59) U/L ALT (6-50) U/L Alkaline Phosphatase (38-126) U/L Total Protein (6.3-8.2) g/dL Albumin (3.5-5.1) g/dL 01/23/25 01/23/25 01/23/25 Range/Units 16:33 16:33 16:33 Sodium (137-145) mmol/L Potassium (3.4-5.0) mmol/L Chloride 105 (98-107) mmol/L Carbon Dioxide 22 23 (22-30) mmol/L BUN 28 H 29 H (9-20) mg/dL Creatinine 3.18 H (0.7-1.3) mg/dL Glucose (65-110) mg/dL Calcium (8.4-10.2) mg/dL AST (17-59) U/L ALT (6-50) U/L Alkaline Phosphatase (38-126) U/L Total Protein (6.3-8.2) g/dL Albumin (3.5-5.1) g/dL 01/23/25 01/23/25 01/23/25 Range/Units 16:33 16:33 16:33 Sodium (137-145) mmol/L Potassium (3.4-5.0) mmol/L Chloride (98-107) mmol/L Carbon Dioxide (22-30) mmol/L BUN (9-20) mg/dL Creatinine 3.14 H (0.7-1.3) mg/dL Glucose 105 103 (65-110) mg/dL Calcium 9.7 10.0 (8.4-10.2) mg/dL AST 36 (17-59) U/L ALT 28 (6-50) U/L Alkaline Phosphatase 59 (38-126) U/L Total Protein 8.1 (6.3-8.2) g/dL Albumin 4.6 (3.5-5.1) g/dL 01/24/25 Range/Units 05:46 Sodium 138 (137-145) mmol/L Potassium 3.7 (3.4-5.0) mmol/L Chloride 110 H (98-107) mmol/L Carbon Dioxide 20 L (22-30) mmol/L BUN 32 H (9-20) mg/dL Creatinine 2.19 H (0.7-1.3) mg/dL Glucose 88 (65-110) mg/dL Calcium 8.6 (8.4-10.2) mg/dL AST 34 (17-59) U/L ALT 20 (6-50) U/L Alkaline Phosphatase 53 (38-126) U/L Total Protein 6.5 (6.3-8.2) g/dL Albumin 3.7 (3.5-5.1) g/dL Intake and Output 01/23/25 01/24/25 01/24/25 23:59 07:59 15:59 Intake Total 2000 300 240 Output Total 400 Balance 2000 -100 240 Intake: IV 2000 Lactated Ringers 1,000 ml @ 999 1000 mls/hr IV CONT .Q1H1M STA Rx#: [id number] Sodium Chloride 0.9% IV 1,000 1000 ml @ 999 mls/hr IV CONT .Q1H1M STA Rx#:[id number] Oral 300 240 Output: Urine 400 Patient Weight 01/24/25 23:59 Weight 101.9 kg EKG personally reviewed and independently interpreted showing sinus rhythm with anterolateral ST and T-wave abnormalities consistent with repolarization abnormality/LVH versus ischemia. In reviewing old EKGs, this is unchanged. Cardiac catheterization 2020 EF normal with 20-30% mid LAD lesion Echocardiogram 2020: EF 65%
[2025-01-24] MEDS: CLOPIDOGREL BISULFATE 75 MG TABLET PO (15:12)
[2025-01-24] MEDS: ENOXAPARIN 40 MG/0.4 ML SYRINGE SUB-Q (15:12)
[2025-01-24] MEDS: WATER FOR IRRIGATION, STERILE 500 ML BOTTLE (20:12)
[2025-01-25] VITALS (9 sets, daily range): BP systolic 143–171; BP diastolic 65–73; PULSE 56–73; RESP 12–16; TEMP 36.7; O2SAT 96–98
[2025-01-25 05:00] LABS: Hematocrit 33.7 % (42.0-52.0); Hemoglobin 11.1 g/dL (14.0-18.0); Immature Granulocyte Percent A 0.2 % (0-0.5); Lymphocytes Absolute Auto 1.59 K/mm3 (0.9-3.2); Mean Corpuscular HGB Conc 32.9 g/dl (32-36); Mean Corpuscular Hemoglobin 29.0 pg (26-34); Mean Corpuscular Volume 88.0 fl (80-100); Nucleated Red Blood Cells Absolute Auto 0.000 K/mm3 (0.0-0.012); Nucleated Red Blood Cells Perc 0.0 % (0.0-0.2); Platelet Count Result 155 k/mm3 (150-375); Red Blood Count 3.83 M/mm3 (4.6-6.20); White Blood Count 5.8 K/mm3 (4.5-10.0)
[2025-01-25] MEDS: LACTATED RINGERS 1,000 ML 100 ML IV CONT (05:00)
[2025-01-25 05:27] LABS: Alanine Aminotransferase 20 U/L (6-50); Albumin Level 3.7 g/dL (3.5-5.1); Alkaline Phosphatase 55 U/L (38-126); Anion Gap 8 mmol/L (4-12); Aspartate Amino Transferase 32 U/L (17-59); Bilirubin,Total 0.8 mg/dL (0.2-1.3); Blood Urea Nitrogen 21 mg/dL (9-20); Calcium 8.6 mg/dL (8.4-10.2); Carbon Dioxide 23 mmol/L (22-30); Chloride 107 mmol/L (98-107); Estimated CRCL calculation 54 ml/min; Estimated Glomerular Filt Rate 49; Glucose 86 mg/dL (65-110); Magnesium 1.9 mg/dL (1.6-2.3); Potassium 3.6 mmol/L (3.4-5.0); Sodium 138 mmol/L (137-145); Total Protein 6.3 g/dL (6.3-8.2)
[2025-01-25] MEDS: CLOPIDOGREL BISULFATE 75 MG TABLET PO (08:47)
[2025-01-25] MEDS: ROSUVASTATIN 20 MG TABLET PO (08:47)
[2025-01-25] MEDS: ENOXAPARIN 40 MG/0.4 ML SYRINGE SUB-Q (08:47)
--- NOTE | 2025-01-25 10:37 | P.PNCA_ITS ---
Progress Note: A&P Assessment and Plan (1) Elevated troponin: Code(s): R79.89 - Other specified abnormal findings of blood chemistry Status: Acute Assessment and Plan: Elevated troponin likely secondary to heat exhaustion. Troponins have peaked and down trending. Did not have any chest pain. Has significant EKG abnormalities but these are not new. Echocardiogram was unremarkable. Offered inpatient stress testing or even coronary angiogram he wishes to defer at this point. I do think that is a reasonable option given his clinical scenario and previous workup. He will follow-up with his previous an established transportation consultant in [facility]. Stay hydrated especially given asymmetric septal hypertrophy noted on echocardiogram. Continue clopidogrel and rosuvastatin. Will add back losartan but will start with 50 mg p.o. daily. (2) Coronary artery disease: Code(s): I25.10 - Atherosclerotic heart disease of [place] coronary artery without angina pectoris Status: Acute Assessment and Plan: Known 20-30 percent mid LAD stenosis. Continue losartan and rosuvastatin. He has an NSAID allergy and continue clopidogrel (3) Hypertension: Code(s): I10 - Essential (primary) hypertension Status: Acute Assessment and Plan: On losartan (4) Heat exhaustion: Code(s): T67.5XXA - Heat exhaustion, unspecified, initial encounter Status: Acute Assessment and Plan: Will DC IV fluids as renal function is back to baseline (5) Acute on chronic kidney failure: Code(s): N17.9 - Acute kidney failure, unspecified; N18.9 - Chronic kidney disease, unspecified Status: Acute Assessment and Plan: Significantly improved. Creatinine initially over 3 and now around 2.1. Baseline around 1.4 per patient. (6) Hyperlipidemia: Code(s): E78.5 - Hyperlipidemia, unspecified Status: Acute Assessment and Plan: Continue rosuvastatin Subjective Date/time seen: 01/25/25 10:37 Interval history: 69-year-old admitted with lightheadedness, elevated troponin, acute renal failure Date of service 01/25/2025: He feels great today. Wants to go home. No chest pain, shortness of breath. Renal function is back to baseline. Review of Systems Review of Systems: All systems reviewed & are unremarkable except as noted in HPI and below Constitutional: Constitutional: Denies body ache(s) and Denies excessive sweating Eyes: Eyes: Denies blurry vision ENT: Reports Normal hearing present Cardiovascular: Cardiovascular: Denies chest pain, Denies palpitations and Denies dyspnea Respiratory: Respiratory: Denies dyspnea Gastrointestinal: Gastrointestinal: Denies abdominal pain and Reports vomiting Genitourinary: Genitourinary: Denies hematuria Musculoskeletal: Musculoskeletal: Reports back pain Integumentary/Breasts: Skin/Breast: Denies pruritus Neurologic: Reports Normal hearing present, Denies Abnormal speech present and Denies behavioral changes Psychiatric: Psychiatric: Denies anxiety and Denies behavioral changes Endocrine: Endocrine: Denies excessive sweating and Denies palpitations Hematologic/Lymphatic: Hematologic/Lymphatic: Denies easy bleeding Allergic/Immunologic: Allergic/Immunologic: Denies GI upset with certain foods Exam Narrative: Alert oriented appears stated age Const: General: comfortable and no acute distress HENMT: Face/Nose/Sinus: Normal nares present Mouth: Yes moist mucous me mbranes Eyes: General: appearance normal, both eyes and all related structures Sclera: sclerae normal Neck: Neck: supple and no JVD Chest: Other: No reproducible chest wall pain to palpation Resp: Effort & Inspection: normal respiratory effort Auscultation: clear to auscultation bilaterally Cardio: Rate: regular rate Rhythm: regular rhythm Heart sounds: no murmurs GI: Inspection: non-distended Auscultation: normal bowel sounds Skin: General skin exam: normal color Neuro: Cranial nerves: Yes Normal hearing present Speech: normal speech and No Abnormal speech present Sensory Exam: normal sensation Extrem: General: normal to inspection Psych: Mental Status: mental status grossly normal Affect: normal affect Objective Data Vital Signs Vital Signs: Vital Signs - 24 hr 01/24/25 11:28 01/24/25 12:00 01/24/25 14:00 Temperature 36.8 C Pulse Rate 56 L 62 72 Respiratory Rate 20 Blood Pressure 150/59 H Pulse Oximetry 98 Oxygen Delivery 01/24/25 16:00 01/24/25 16:27 01/24/25 17:30 Temperature 36.8 C Pulse Rate 59 L 63 66 Respiratory Rate 20 Blood Pressure 148/64 H Pulse Oximetry 98 Oxygen Delivery 01/24/25 20:00 01/24/25 20:00 01/24/25 20:00 Temperature 36.8 C Pulse Rate 63 58 L 65 Respiratory Rate 16 Blood Pressure 147/64 H 143/79 H 145/67 H Pulse Oximetry 96 Oxygen Delivery 01/24/25 20:00 01/24/25 20:00 01/24/25 20:00 Temperature Pulse Rate 68 72 Respiratory Rate Blood Pressure 153/70 H Pulse Oximetry Oxygen Delivery Room Air 01/24/25 22:00 01/24/25 23:42 01/24/25 23:45 Temperature Pulse Rate 70 63 Respiratory Rate Blood Pressure Pulse Oximetry 98 Oxygen Delivery Room Air Autopap 01/24/25 23:59 01/25/25 00:00 01/25/25 02:00 Temperature 36.8 C Pulse Rate 56 L 60 56 L Respiratory Rate 16 Blood Pressure 103/70 Pulse Oximetry 100 Oxygen Delivery 01/25/25 03:05 01/25/25 04:00 01/25/25 04:00 Temperature 36.7 C Pulse Rate 59 L 59 L Respiratory Rate 16 Blood Pressure 143/70 H Pulse Oximetry 98 Oxygen Delivery Autopap 01/25/25 04:00 01/25/25 06:00 01/25/25 07:57 Temperature 36.7 C Pulse Rate 56 L 62 Respiratory Rate 12 Blood Pressure 155/65 H Pulse Oximetry 96 Oxygen Delivery Room Air 01/25/25 08:00 01/25/25 08:00 01/25/25 10:00 Temperature Pulse Rate 73 61 Respiratory Rate Blood Pressure Pulse Oximetry 96 Oxygen Delivery Room Air Intake/Output Intake/Output: Intake & Output 01/22/25 01/23/25 01/24/25 01/25/25 23:59 23:59 23:59 23:59 Intake Total 1999 2168.3 1720 Output Total 1000 500 Balance 1999 1168.3 1220 Meds/Results Medications: Active Medications Generic Name Dose Route Start Last Admin Trade Name Freq PRN Reason Stop Dose Admin Acetaminophen 650 mg 01/24/25 05:52 Acetaminophen 325 Mg Tablet PO Q6H PRN Mild Pain (1-3) or Fever Clopidogrel Bisulfate 75 mg 01/24/25 15:05 01/25/25 08:47 Clopidogrel Bisulfate 75 Mg Tablet PO 75 mg QAM RK Administration Enoxaparin Sodium 40 mg 01/24/25 09:00 01/25/25 08:47 Enoxaparin 40 Mg/0.4 Ml Syringe SUB-Q 40 mg DAILY RK Administration Lactated Ringer's 1,000 mls @ 100 mls/hr 01/24/25 05:55 01/25/25 05:00 Lr - Lactated Ringers Iv IV CONT 100 mls/hr .Q10H RK Administration Perflutren Lipid Microsphere 0 ml 01/24/25 08:44 Perflutren Lipid Microspheres 1.5 Ml Vial Diluted To 10 Ml Total Volume IV PUSH 01/27/25 08:44 ONCE PRN adequate visualization Protocol Rosuvastatin Calcium 20 mg 01/24/25 09:00 01/25/25 08:47 Rosuvastatin 20 Mg Tablet PO 20 mg DAILY RK Administration Radiology Results: ITS Impressions Chest X-Ray 01/23/25 23:27 IMPRESSION: No acute cardiopulmonary pathology. Labs Labs: Laboratory Results - last 24 hr 01/25/25 04:17 WBC 5.8 RBC 3.83 L Hgb 11.1 L Hct 33.7 L MCV 88.0 MCH 29.0 MCHC 32.9 RDW 13.2 Plt Count 155 MPV 11.5 H Immature Gran % (Auto) 0.2 Neut % (Auto) 62.4 Lymph % (Auto) 27.4 [place] % (Auto) 8.3 Eos % (Auto) 1.4 Baso % (Auto) 0.3 Lymph # (Auto) 1.59 [place] # (Auto) 0.5 Eos # (Auto) 0.1 Baso # (Auto) 0.0 Abs Immat Gran (auto) 0.01 Absolute Neuts (auto) 3.6 Absolute Nucleated RBC 0.000 Nucleated RBC % 0.0 Sodium 138 Potassium 3.6 Chloride 107 Carbon Dioxide 23 Anion Gap 8 BUN 21 H D Creatinine 1.43 H Estim Creat Clear Calc 54 Estimated GFR 49 L Glucose 86 Calcium 8.6 Magnesium 1.9 Total Bilirubin 0.8 AST 32 ALT 20 Alkaline Phosphatase 55 Total Protein 6.3 Albumin 3.7 Echo2. Left ventricular chamber dimension is normal. 3. Left ventricular systolic function is normal, estimated at 65-70. 4. There is moderate asymmetric septal increased left ventricular wall thickness. 5. The left ventricular diastolic function is grade I diastolic dysfunction. 6. Left atrial chamber dimension is mildly enlarged. 7. There is mild to moderate mitral valve regurgitation. 8. There is mild tricuspid valve regurgitation.
[2025-01-25] MEDS: LOSARTAN POTASSIUM 50 MG TABLET PO (11:00)
--- NOTE | 2025-01-25 11:22 | PM.DS ---
DS: Admitting Diagnosis Discharge Date 01/25/2025 Admitting Diagnosis nausea,vomiting DS: Discharge Diagnosis Discharge Diagnosis (1) Non-ST elevation myocardial infarction (NSTEMI): Code(s): I21.4 - Non-ST elevation (NSTEMI) myocardial infarction Status: Acute (2) Heat exhaustion: Code(s): T67.5XXA - Heat exhaustion, unspecified, initial encounter Status: Acute (3) Acute on chronic kidney failure: Code(s): N17.9 - Acute kidney failure, unspecified; N18.9 - Chronic kidney disease, unspecified Status: Acute (4) Hypertension: Code(s): I10 - Essential (primary) hypertension Status: Acute (5) Hyperlipidemia: Code(s): E78.5 - Hyperlipidemia, unspecified Status: Acute DS: Summary Hospital Course Hospital Course: This is a very pleasant 69-year-old male with hypertension, hyperlipidemia, benign prostatic hyperplasia, and chronic kidney disease (last creatinine was around 1.7) who presented to the emergency department via private vehicle for evaluation of possible heat exhaustion. 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 It was hot outside and he tried to stay hydrated by drinking Gatorade. They also did not walk and used a cart instead. After 4 hours of play he began to feel dizzy and lightheaded and not long thereafter he developed muscle cramping, nausea, and had several episodes of nonbloody and nonbilious emesis. He denies syncope, fever, cold and flu symptoms, chest pain, pleuritic pain, shortness of breath, lower extremity edema, and calf pain. In the ED: Vital signs were stable on arrival. Labs are significant for WBC count of 12.4, hemoglobin 13.1, BUN 29, creatinine 3.14, total CK 307, troponin 0.046, proBNP 422. Chest x-ray showed no acute findings. EKG showed sinus rhythm with first-degree AV block and findings of left ventricular hypertrophy and ST-T change. With further questioning patient reports that he had a stress test and subsequent cardiac catheterization done a couple years ago for evaluation of an abnormal echocardiogram and there were no significant findings. 3 hour troponin came back at 1.220 and he was given enoxaparin 1 milligram/kilogram and he is being admitted in this setting for close monitoring, cardiology consultation, and hydration. Non ST-elevation CO. troponin trend: 0.469-1 0.2-1 0.3-1.2. Received Lovenox therapeutic dose. Cardiology consulted. EKG with ST-T changes in lateral leads. No prior EKG to compare. echo reviewed has asymmetric septal hypertrophy. normal ef. on antiplatelet. 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 mild CAD hx with known 20-30% mid LAD stenosis from cath 2020. follow up as op basis. DEVANG on CKD unknown baseline level. Creatinine is 3.18 on admission. Continues to improve and back to baseline by the time of discahrge. Mild rhabdomyolysis CK elevated 410 Elevated D-dimer DVT prophylaxis Lovenox Code status full code Time Spent with Patient Time attestation: Total time spent providing and/or coordinating discharge services:35 mins Exam Narrative: General: Well-developed, nontoxic-appearing male supine in bed in no distress. HEENT: PERRL, EOMI. Sclera anicteric. Oral mucosa moist. Neck: Supple. Respiratory: Lungs are clear to auscultation bilaterally. No Respiratory distress Cardiovascular: Regular rate and rhythm with S1-S2. Gastrointestinal: Abdomen is soft, nontender, and nondistended with positive bowel sounds. Skin: Warm and dry. No rash or lesions on limited exam. Extremities: No cyanosis, clubbing, or edema. Radial and pedal pulses intact. No palpable knots or cords. Negative Mer sign bilaterally. Neurological: Alert. Cranial nerves grossly intact. No gross focal deficits to casual conversation. Psychiatric: Pleasant and cooperative with normal mood and affect. Judgment and insight intact. DS: Data Data Completed and Pending Completed studies during hospitalization: Exam Type: CA echo doppler color flow Complete two-dimensional, color flow and Doppler transthoracic echocardiogram is performed. Staff Referring Physician: Edward Burrell Production Utility Worker: Ellie Jaimes Attending Provider: Dk Gomez Summary 1. Complete two-dimensional, color flow and Doppler transthoracic echocardiogram is performed. 2. Left ventricular chamber dimension is normal. 3. Left ventricular systolic function is normal, estimated at 65-70. 4. There is moderate asymmetric septal increased left ventricular wall thickness. 5. The left ventricular diastolic function is grade I diastolic dysfunction. 6. Left atrial chamber dimension is mildly enlarged. 7. There is mild to moderate mitral valve regurgitation. 8. There is mild tricuspid valve regurgitation. Left Ventricle Left ventricular chamber dimension is normal. Left ventricular systolic function is normal, estimated at 65-70. There is moderate asymmetric septal increased left ventricular wall thickness. The left ventricular diastolic function is grade I diastolic dysfunction. Right Ventricle Right ventricular chamber dimension is normal. Right ventricular systolic function is normal. Left Atria Left atrial chamber dimension is mildly enlarged. Right Atria Right atrial chamber dimension is normal. Atrial Septum Intact interatrial septum visualized by color flow imaging. Aortic Valve The aortic valve is trileaflet. There is mild aortic valve sclerosis. There is no aortic valve stenosis. There is trace aortic valve regurgitation. Pulmonic Valve The pulmonic valve is normal. There is no pulmonic valve stenosis. There is trace pulmonic regurgitation. Mitral Valve The mitral valve has normal leaflets. There is no mitral valve stenosis. There is mild to moderate mitral valve regurgitation. Tricuspid Valve The tricuspid valve leaflets are normal. There is no significant tricuspid valve stenosis. There is mild tricuspid valve regurgitation. Pericardium/Pleural The pericardium appears normal. There is no pericardial effusion. Inferior Vena Cava Normal inferior vena cava with >50% collapse upon inspiration consistent with normal right atrial pressure, 5 mmHg. Aorta The aortic root size at the sinus of Valsalva is normal. Labs on day of discharge: Labs from last 24 hours 01/25/25 04:17 WBC 5.8 RBC 3.83 L Hgb 11.1 L Hct 33.7 L MCV 88.0 MCH 29.0 MCHC 32.9 RDW 13.2 Plt Count 155 MPV 11.5 H Immature Gran % (Auto) 0.2 Neut % (Auto) 62.4 Lymph % (Auto) 27.4 [place] % (Auto) 8.3 Eos % (Auto) 1.4 Baso % (Auto) 0.3 Lymph # (Auto) 1.59 [place] # (Auto) 0.5 Eos # (Auto) 0.1 Baso # (Auto) 0.0 Abs Immat Gran (auto) 0.01 Absolute Neuts (auto) 3.6 Absolute Nucleated RBC 0.000 Nucleated RBC % 0.0 Sodium 138 Potassium 3.6 Chloride 107 Carbon Dioxide 23 Anion Gap 8 BUN 21 H D Creatinine 1.43 H Estim Creat Clear Calc 54 Estimated GFR 49 L Glucose 86 Calcium 8.6 Magnesium 1.9 Total Bilirubin 0.8 AST 32 ALT 20 Alkaline Phosphatase 55 Total Protein 6.3 Albumin 3.7 Imaging Radiologist's impression: ITS Impressions Chest X-Ray 01/23/25 23:27 IMPRESSION: No acute cardiopulmonary pathology. Discharge Plan Discharge Attending physician on discharge: Edward Burrell Consulting providers: Rene White Discharging Clinician: Edward Burrell Anticipated Discharge Date/Time: 01/25/25 11:24 Patient Disposition: Home Activity: as tolerated Diet: heart healthy Patient Instructions: Antibiotic Form, Acute Kidney Injury (GEN) Patient Language: Estonian Stand Alone Forms: General Discharge Information Follow-up/Referrals: PHYSICIAN NOT ON STAFF,NONSTAFF [Primary Care Provider] - 1 Week Discharge Medications: New losartan [Cozaar] 50 mg Tablet 50 mg PO DAILY Qty: 30 0RF clopidogrel 75 mg Tablet 75 mg PO QAM Qty: 30 0RF Continued rosuvastatin 20 mg tablet 20 mg PO DAILY Discontinued losartan 50 mg tablet 75 mg PO DAILY Date of admission: 01/24/25 15:35 Primary Care Provider: PHYSICIAN NOT ON STAFF,NONSTAFF Admitting Provider: Dk Gomez Attending physician on admission: Dk Gomez Condition: Improved
== END 2025-01-25 12:37 | disposition home or self-care (01) | DRG 281 ==
LOC: ANHED 20:43 → ANH3MEDSUR 22:42 → ANHIMU 23:29
PROVIDERS: Physician Assistant; Admitting Provider Internal Medicine; Emergency Provider Physician Assistant; Visit Provider Internal Medicine
DX: I25.10 Atherosclerotic heart disease of native coronary artery without angina pectoris (principal); N17.9 Acute kidney failure, unspecified; I21.A1 Myocardial infarction type 2; T67.5XXA Heat exhaustion, unspecified, initial encounter; E78.5 Hyperlipidemia, unspecified; E86.0 Dehydration; I12.9 Hypertensive chronic kidney disease with stage 1 through stage 4 chronic kidney disease, or unspecified chronic kidney disease; N40.0 Benign prostatic hyperplasia without lower urinary tract symptoms; N18.9 Chronic kidney disease, unspecified
CPT/HCPCS: 36415; 71046; 80048; 80053; 81001; 82550; 83735; 83880; 84484; 85025; 85027; 85380; 85610; 85730; 93005; 93306; 96360; 96361; 96372; 99285; A9270; G0378; J1650; J7030; J7120